=== PATIENT | female | born 1965 | race Caucasian/White ===

== ENCOUNTER 2021-01-29 17:03 | Inpatient (IN) | payer OTHER ==
[2021-01-29 19:43] LABS: Basophils # (A) 0.1 k/uL (0-0.2); Basophils % (A) 0 %; Eosinophils % (A) 0 %; HCT 43.2 % (34.0-46.0); HGB 14.5 gm/dL (11.4-16.0); Lymphocytes # (A) 0.9 k/uL (1.0-4.8); Lymphocytes % (A) 5 %; MCHC 33.6 g/dL (31.0-37.0); MCV 89.3 fL (80.0-100.0); Mean Platelet Volume 7.6; Monocytes # (A) 0.9 k/uL (0-1.0); Monocytes % (A) 5 %; Neutrophils # (A) 15.4 k/uL (1.3-7.7); Neutrophils % (A) 87 %; Platelet Count 306 k/uL (150-450); RBC 4.84 m/uL (3.80-5.40); WBC 17.7 k/uL (3.8-10.6)
[2021-01-29 19:58] LABS: Albumin 3.7 g/dL (3.5-5.0); Calcium 9.2 mg/dL (8.4-10.2)
[2021-01-29] MEDS ORDERED: INSULIN REGULAR 100 UNIT/ML VIAL (IV) IV STA (21:20)
[2021-01-29] MEDS ORDERED: SODIUM CHLORIDE 0.9% 2,000 ML IV ONE (21:20)
[2021-01-29] MEDS ORDERED: SODIUM CHLORIDE 0.9% 1,000 ML IV STA (21:20)
--- NOTE | 2021-01-29 21:24 | ED ---
Nausea/Vomiting/Diarrhea HPI - General Chief complaint: Nausea/Vomiting/Diarrhea Stated complaint: nausea, dizzy Time Seen by Provider: 01/29/21 20:58 Source: patient Mode of arrival: wheelchair Limitations: physical limitation - History of Present Illness Initial comments: This patient is a 55-year-old woman who states she has no real medical history a nd comes in presenting with approximately a week of a number symptoms. She had about 4 days of feeling hot and cold a little bit of mild headache and backache, and then she started feeling more progressively weak for the past 3 days she has been having nausea and vomiting feeling lightheaded when she gets up and feels like she will faint if she walks. She states that it got so bad she decided to be seen here today. She denies feeling focal symptoms of infection. No congestion or sore throat. No cough, chest pain or dyspnea. No nausea vomiting or diarrhea. No rash. MD complaint: nausea, vomiting, other -: days(s) Description of Vomiting: food contents Severity scale (1-10): 0 Consistency: constant Improves with: none Worsens with: none Associated Symptoms: myalgias, headaches, nausea/vomiting, weakness - Related Data Previous Rx's Medication Instructions Recorded Amoxicillin/Potassium Clav 1 tab PO BID 10 Days #20 tab 02/05/21 [Augmentin 875-125 Tablet] Insulin Glargine,Hum.rec.anlog 30 unit SQ HS #10 each 02/05/21 [Basaglar Kwikpen U-100] Omeprazole [PriLOSEC] 20 mg PO AC-BID 30 Days #60 cap 02/05/21 Ondansetron [Zofran] 4 mg PO Q8HR PRN #9 tab 02/05/21 lisinopriL [Zestril] 5 mg PO DAILY #30 tablet 02/05/21 metFORMIN HCL [Glucophage] 500 mg PO BID 30 Days #60 tab 02/05/21 Allergies Allergy/AdvReac Type Severity Reaction Status Date / Time No Known Allergies Allergy Verified 01/29/21 23:15 Review of Systems ROS Statement: Those systems with pertinent positive or pertinent negative responses have been documented in the HPI. ROS Other: All systems not noted in ROS Statement are negative. Constitutional: Reports: fever, chills, weakness Eyes: Denies: vision change ENT: Denies: throat pain, congestion Respiratory: Denies: cough, dyspnea, wheezes Cardiovascular: Denies: chest pain, palpitations, orthopnea, edema, syncope Endocrine: Reports: fatigue Gastrointestinal: Reports: nausea, vomiting. Denies: abdominal pain, diarrhea, constipation, hematemesis, melena, hematochezia Genitourinary: Denies: dysuria, frequency, hematuria Musculoskeletal: Denies: back pain Skin: Denies: rash Neurological: Denies: headache, weakness Past Medical History Past Medical History: No Reported History History of Any Multi-Drug Resistant Organisms: None Reported Past Surgical History: No Surgical Hx Reported Past Psychological History: No Psychological Hx Reported Smoking Status: Never smoker Past Alcohol Use History: None Reported Past Drug Use History: None Reported - Past Family History Mother History Unknown: Yes Father History Unknown: Yes General Exam Limitations: physical limitation General appearance: alert, in no apparent distress Head exam: Present: atraumatic, normocephalic Eye exam: Present: normal appearance ENT exam: Present: mucous membranes dry Neck exam: Present: normal inspection, full ROM Respiratory exam: Present: normal lung sounds bilaterally. Absent: respiratory distress, wheezes, rales, rhonchi, stridor Cardiovascular Exam: Present: regular rate, normal rhythm, normal heart sounds. Absent: systolic murmur, diastolic murmur, rubs, gallop GI/Abdominal exam: Present: soft. Absent: distended, tenderness, guarding, rebound, rigid, mass Extremities exam: Present: normal inspection, normal capillary refill. Absent: pedal edema, calf tenderness Back exam: Present: normal inspection. Absent: CVA tenderness (R), CVA tenderness (L) Neurological exam: Present: alert Skin exam: Present: warm, dry, intact, normal color. Absent: rash Course Vital Signs 01/29/21 01/29/21 01/30/21 18:52 23:14 01:52 Temperature 98.8 F Pulse Rate 109 H 93 120 H Pulse Rate [ Hand Tool Lapper ] Respiratory 18 16 22 Rate Blood Pressure 123/78 132/75 128/73 Blood Pressure [Right Arm] O2 Sat by Pulse 99 97 Oximetry 01/30/21 01/30/21 01/30/21 04:23 07:52 07:55 Temperature 101.6 F H 101.6 F H Pulse Rate 63 Pulse Rate [ 124 H 124 H Hand Tool Lapper ] Respiratory 16 18 16 Rate Blood Pressure 104/79 Blood Pressure 144/82 144/82 [Right Arm] O2 Sat by Pulse 96 93 L 93 L Oximetry 01/30/21 01/30/21 11:45 15:50 Temperature 100.6 F H 99.3 F Pulse Rate Pulse Rate [ 106 H 104 H Hand Tool Lapper ] Respiratory 16 18 Rate Blood Pressure Blood Pressure 127/77 121/59 [Right Arm] O2 Sat by Pulse 95 95 Oximetry Medical Decision Making - Lab Data Result diagrams: 02/05/21 06:00 02/05/21 06:00 Lab Results 01/29/21 01/29/21 01/29/21 Range/Units 19:24 19:24 19:24 WBC 17.7 H (3.8-10.6) k/uL RBC 4.84 (3.80-5.40) m/uL Hgb 14.5 (11.4-16.0) gm/dL Hct 43.2 (34.0-46.0) % MCV 89.3 (80.0-100.0) fL MCH 30.0 (25.0-35.0) pg MCHC 33.6 (31.0-37.0) g/dL RDW 13.0 (11.5-15.5) % Plt Count 306 (150-450) k/uL MPV 7.6 Neutrophils % 87 % Lymphocytes % 5 % Monocytes % 5 % Eosinophils % 0 % Basophils % 0 % Neutrophils # 15.4 H (1.3-7.7) k/uL Lymphocytes # 0.9 L (1.0-4.8) k/uL Monocytes # 0.9 (0-1.0) k/uL Eosinophils # 0.0 (0-0.7) k/uL Basophils # 0.1 (0-0.2) k/uL Sodium 126 L (137-145) mmol/L Potassium 4.0 (3.5-5.1) mmol/L Chloride 88 L (98-107) mmol/L Carbon Dioxide 16 L (22-30) mmol/L Anion Gap 22 mmol/L BUN 33 H (7-17) mg/dL Creatinine 1.35 H (0.52-1.04) mg/dL Est GFR (CKD-EPI)AfAm 51 (>60 ml/min/1.73 sqM) Est GFR (CKD-EPI)NonAf 44 (>60 ml/min/1.73 sqM) Glucose 486 H (74-99) mg/dL POC Glucose (mg/dL) (75-99) mg/dL POC Glu Quote Clerk ID Calcium 9.2 (8.4-10.2) mg/dL Total Bilirubin 1.0 (0.2-1.3) mg/dL AST 16 (14-36) U/L ALT 13 (4-34) U/L Alkaline Phosphatase 162 H (38-126) U/L Troponin I (0.000-0.034) ng/mL Total Protein 7.0 (6.3-8.2) g/dL Albumin 3.7 (3.5-5.0) g/dL Acetone, Qual Positive (Negative) Coronavirus (PCR) (Not Detectd) 01/29/21 01/29/21 01/29/21 Range/Units 19:24 21:47 23:01 WBC (3.8-10.6) k/uL RBC (3.80-5.40) m/uL Hgb (11.4-16.0) gm/dL Hct (34.0-46.0) % MCV (80.0-100.0) fL MCH (25.0-35.0) pg MCHC (31.0-37.0) g/dL RDW (11.5-15.5) % Plt Count (150-450) k/uL MPV Neutrophils % % Lymphocytes % % Monocytes % % Eosinophils % % Basophils % % Neutrophils # (1.3-7.7) k/uL Lymphocytes # (1.0-4.8) k/uL Monocytes # (0-1.0) k/uL Eosinophils # (0-0.7) k/uL Basophils # (0-0.2) k/uL Sodium (137-145) mmol/L Potassium (3.5-5.1) mmol/L Chloride (98-107) mmol/L Carbon Dioxide (22-30) mmol/L Anion Gap mmol/L BUN (7-17) mg/dL Creatinine (0.52-1.04) mg/dL Est GFR (CKD-EPI)AfAm (>60 ml/min/1.73 sqM) Est GFR (CKD-EPI)NonAf (>60 ml/min/1.73 sqM) Glucose (74-99) mg/dL POC Glucose (mg/dL) 439 H (75-99) mg/dL POC Glu Quote Clerk Javier Rodrigez Calcium (8.4-10.2) mg/dL Total Bilirubin (0.2-1.3) mg/dL AST (14-36) U/L ALT (4-34) U/L Alkaline Phosphatase (38-126) U/L Troponin I <0.012 (0.000-0.034) ng/mL Total Protein (6.3-8.2) g/dL Albumin (3.5-5.0) g/dL Acetone, Qual (Negative) Coronavirus (PCR) Not Detected (Not Detectd) - EKG Data -: EKG Interpreted by Me EKG shows normal: sinus rhythm, axis (Normal), intervals (Normal), QRS complexes (Normal), ST-T waves (Normal) Rate: tachycardia (Rate 106 bpm) Critical Care Time Critical Care Time: Yes (30 minutes) Disposition Clinical Impression: DKA (diabetic ketoacidosis) Disposition: ADMITTED IP TO THIS [facility] Condition: Fair Is patient prescribed a controlled substance at d/c from ED?: No
[2021-01-29 23:02] LABS: Glucose,Whole Blood 439 mg/dL (75-99)
[2021-01-30 00:38] LABS: Glucose,Whole Blood 366 mg/dL (75-99)
[2021-01-30] MEDS: INSULIN REGULAR 100 UNIT in SODIUM CHLORIDE 0.9% 100 ML IV SCH ×2 (00:41→11:37)
[2021-01-30] MEDS ORDERED: ONDANSETRON 4 MG/2 ML VIAL IVP STA (00:50)
[2021-01-30] MEDS ORDERED: MORPHINE SULFATE 4 MG/ML SYRINGE IV STA (00:50)
[2021-01-30 01:19] LABS: Phosphorus 2.6 mg/dL (2.5-4.5)
[2021-01-30] MEDS: SODIUM CHLORIDE 0.9% 1,000 ML IV SCH ×5 (01:25→18:56)
[2021-01-30 02:09] LABS: Glucose,Whole Blood 347 mg/dL (75-99)
[2021-01-30 03:14] LABS: Glucose,Whole Blood 318 mg/dL (75-99)
[2021-01-30 04:21] LABS: Glucose,Whole Blood 278 mg/dL (75-99)
[2021-01-30 05:30] LABS: Phosphorus 1.4 mg/dL (2.5-4.5); Potassium 3.1 mmol/L (3.5-5.1)
[2021-01-30 05:30] LABS: Glucose,Whole Blood 217 mg/dL (75-99)
[2021-01-30] MEDS ORDERED: Potassium Replacement Protocol 1 EACH MISC MISCELLANE PRN (06:23)
[2021-01-30] MEDS: POTASSIUM CHLORIDE ER 20 MEQ TAB.ER PO SCH ×2 (06:41→10:29)
[2021-01-30 06:45] LABS: Glucose,Whole Blood 188 mg/dL (75-99)
[2021-01-30 08:17] LABS: Glucose,Whole Blood 226 mg/dL (75-99)
[2021-01-30] MEDS: D5W WITH KCL 20 MEQ/L 1,000 ML IV SCH ×2 (08:57→21:40)
[2021-01-30 09:47] LABS: Glucose,Whole Blood 210 mg/dL (75-99)
[2021-01-30 10:43] LABS: Glucose,Whole Blood 180 mg/dL (75-99)
[2021-01-30] MEDS ORDERED: PIPERACILLIN-TAZOBACTAM 3.375 GM in SODIUM CHLORIDE 0.9% 100 ML IVPB SCH (12:00)
--- NOTE | 2021-01-30 12:19 | XR ---
EXAMINATION TYPE: XR chest 2V DATE OF EXAM: 01/30/2021 COMPARISON: None INDICATION: Pneumonia TECHNIQUE: 2 view chest FINDINGS: The heart size is normal. The pulmonary vasculature is normal. Minimal infiltrate is at the right base. Correlate for plate atelectasis and subsegmental atelectasis . Posterior infiltrate on the lateral view may also be present. IMPRESSION: 1. Right lower lobe infiltrate. Correlate for atelectasis and pneumonia. Follow-up can be performed.
[2021-01-30 12:24] LABS: Glucose,Whole Blood 162 mg/dL (75-99)
[2021-01-30 12:35] LABS: Glucose,Whole Blood 142 mg/dL (75-99)
[2021-01-30 13:23] LABS: Glucose,Whole Blood 162 mg/dL (75-99)
[2021-01-30 13:30] LABS: Albumin 2.8 g/dL (3.5-5.0); Calcium 7.9 mg/dL (8.4-10.2); Total Bilirubin 0.7 mg/dL (0.2-1.3); Total Protein 5.7 g/dL (6.3-8.2)
--- NOTE | 2021-01-30 13:36 | P.HPIM ---
History of Present Illness Patient is a 55-year-old female came in with complains of rectal nausea vomiting with headache and backache has been getting progressively weak for about 3 days. Patient is found to be in diabetic acidosis patient was never diagnosed with discitis and do not have any hemoglobin A1c available at this time. Patient also had fevers today patient doesn't have any cough but chest x-ray was done which showed right lower lobe infiltrate initially patient was started on Zosyn empirically which will be transitioned to Rocephin and azithromycin. I also obtain a urine cultures and blood cultures which are pending. Patient is hyponatremic as well as hypokalemic secondary to nausea vomiting. Patient does have leukocytosis as well. REVIEW OF SYSTEMS: CONSTITUTIONAL: As mentioned in HPI HEENT: No recent visual problems or hearing problems. Denied any sore throat. CARDIOVASCULAR: No chest pain, orthopnea, PND, no palpitations, no syncope. PULMONARY: No shortness of breath, no cough, no hemoptysis. GASTROINTESTINAL: As mentioned in HPI. NEUROLOGICAL: No headaches, no weakness, no numbness. HEMATOLOGICAL: Denies any bleeding or petechiae. GENITOURINARY: Denies any burning micturition, frequency, or urgency. MUSCULOSKELETAL/RHEUMATOLOGICAL: Denies any joint pain, swelling, or any muscle pain. ENDOCRINE: Denies any polyuria or polydipsia. The rest of the 14-point review of systems is negative. PHYSICAL EXAMINATION: GENERAL: The patient is alert and oriented x3, not in any acute distress. Well developed, well nourished. HEENT: Pupils are round and equally reacting to light. EOMI. No scleral icterus. No conjunctival pallor. Normocephalic, atraumatic. No pharyngeal erythema. No thyromegaly. CARDIOVASCULAR: S1 and S2 present. No murmurs, rubs, or gallops. PULMONARY: Chest is clear to auscultation, no wheezing or crackles. ABDOMEN: Soft, nontender, nondistended, normoactive bowel sounds. No palpable organomegaly. MUSCULOSKELETAL: No joint swelling or deformity. EXTREMITIES: No cyanosis, clubbing, or pedal edema. NEUROLOGICAL: Gross neurological examination did not reveal any focal deficits. SKIN: No rashes. Assessment and plan Possible diabetic ketoacidosis: Patient appears to be type II diabetic with insulin deficiency. Patient does have acetone in the urine but this can be starvation ketosis. Patient will be continued on IV insulin will continue to follow DKA protocol for now was anion gap resolves patient will be transitioned to 15 units of long-acting insulin an hour after that patient kidney and IV fluids will be transitioned to normal saline from D5 half-normal saline, IV insulin will be discontinued. -Hyponatremia hypovolemic hyponatremia and hyperosmolar hyponatremia secondary to diabetes mellitus expected to improve with improvement of blood sugars -Possible right lower lobe pneumonia patient does have sepsis possible source being right lower lobe pneumonia patient does have infiltrate on the chest x-ray although minimal. Patient will be switched to Rocephin and azithromycin blood cultures were obtained pending urine cultures and urinalysis -Hypokalemia potassium will be replaced -Tachycardia secondary to sepsis and metabolic acidosis DVT prophylaxis: Lovenox Past Medical History Past Medical History: No Reported History History of Any Multi-Drug Resistant Organisms: None Reported Past Surgical History: No Surgical Hx Reported Past Anesthesia/Blood Transfusion Reactions: No Reported Reaction Past Psychological History: No Psychological Hx Reported Smoking Status: Never smoker Past Alcohol Use History: None Reported Past Drug Use History: None Reported - Past Family History Mother History Unknown: Yes Father History Unknown: Yes Medications and Allergies Home Medications Medication Instructions Recorded Confirmed Type No Known Home Medications 01/29/21 01/29/21 History Allergies Allergy/AdvReac Type Severity Reaction Status Date / Time No Known Allergies Allergy Verified 01/29/21 23:15 Physical Exam Vitals: Vital Signs Temp Pulse Pulse Resp BP BP Pulse Ox 01/30/21 11:45 100.6 F H 106 H 16 127/77 95 01/30/21 07:55 101.6 F H 124 H 16 144/82 93 L 01/30/21 07:52 101.6 F H 124 H 18 144/82 93 L 01/30/21 04:23 63 16 104/79 96 01/30/21 01:52 120 H 22 128/73 01/29/21 23:14 93 16 132/75 97 01/29/21 18:52 98.8 F 109 H 18 123/78 99 Intake and Output 01/29/21 01/30/21 01/30/21 22:59 06:59 14:59 Intake Total 54.468 46.671 Balance 54.468 46.671 Intake: Intake, IV Titration 54.468 46.671 Amount Insulin Regular 100 unit 54.468 46.671 In Sodium Chloride 0.9% 100 ml @ 0.1 UNITS/KG/HR 8.567 mls/hr IV .[id number] [facility] [place] Rx#:[id number] Other: Weight 84.822 kg 84.822 kg Results CBC & Chem 7: 01/29/21 19:24 01/30/21 12:45 Labs: Abnormal Lab Results - Last 24 Hours (Table) 01/29/21 01/29/21 01/29/21 Range/Units 19:24 19:24 23:01 WBC 17.7 H (3.8-10.6) k/uL Neutrophils # 15.4 H (1.3-7.7) k/uL Lymphocytes # 0.9 L (1.0-4.8) k/uL Sodium 126 L (137-145) mmol/L Potassium (3.5-5.1) mmol/L Chloride 88 L (98-107) mmol/L Carbon Dioxide 16 L (22-30) mmol/L BUN 33 H (7-17) mg/dL Creatinine 1.35 H (0.52-1.04) mg/dL Glucose 486 H (74-99) mg/dL POC Glucose (mg/dL) 439 H (75-99) mg/dL Calcium (8.4-10.2) mg/dL Phosphorus (2.5-4.5) mg/dL Alkaline Phosphatase 162 H (38-126) U/L Total Protein (6.3-8.2) g/dL Albumin (3.5-5.0) g/dL 01/30/21 01/30/21 01/30/21 Range/Units 00:33 00:37 02:07 WBC (3.8-10.6) k/uL Neutrophils # (1.3-7.7) k/uL Lymphocytes # (1.0-4.8) k/uL Sodium 130 L (137-145) mmol/L Potassium (3.5-5.1) mmol/L Chloride 97 L (98-107) mmol/L Carbon Dioxide 11 L (22-30) mmol/L BUN 30 H (7-17) mg/dL Creatinine 1.06 H (0.52-1.04) mg/dL Glucose 420 H (74-99) mg/dL POC Glucose (mg/dL) 366 H 347 H (75-99) mg/dL Calcium (8.4-10.2) mg/dL Phosphorus (2.5-4.5) mg/dL Alkaline Phosphatase (38-126) U/L Total Protein (6.3-8.2) g/dL Albumin (3.5-5.0) g/dL 01/30/21 01/30/21 01/30/21 Range/Units 03:09 04:16 04:34 WBC (3.8-10.6) k/uL Neutrophils # (1.3-7.7) k/uL Lymphocytes # (1.0-4.8) k/uL Sodium 133 L (137-145) mmol/L Potassium 3.1 L (3.5-5.1) mmol/L Chloride (98-107) mmol/L Carbon Dioxide 16 L (22-30) mmol/L BUN 27 H (7-17) mg/dL Creatinine (0.52-1.04) mg/dL Glucose 252 H (74-99) mg/dL POC Glucose (mg/dL) 318 H 278 H (75-99) mg/dL Calcium (8.4-10.2) mg/dL Phosphorus 1.4 L (2.5-4.5) mg/dL Alkaline Phosphatase (38-126) U/L Total Protein (6.3-8.2) g/dL Albumin (3.5-5.0) g/dL 01/30/21 01/30/21 01/30/21 Range/Units 05:25 06:44 08:10 WBC (3.8-10.6) k/uL Neutrophils # (1.3-7.7) k/uL Lymphocytes # (1.0-4.8) k/uL Sodium (137-145) mmol/L Potassium (3.5-5.1) mmol/L Chloride (98-107) mmol/L Carbon Dioxide (22-30) mmol/L BUN (7-17) mg/dL Creatinine (0.52-1.04) mg/dL Glucose (74-99) mg/dL POC Glucose (mg/dL) 217 H 188 H 226 H (75-99) mg/dL Calcium (8.4-10.2) mg/dL Phosphorus (2.5-4.5) mg/dL Alkaline Phosphatase (38-126) U/L Total Protein (6.3-8.2) g/dL Albumin (3.5-5.0) g/dL 01/30/21 01/30/21 01/30/21 Range/Units 09:04 10:31 11:34 WBC (3.8-10.6) k/uL Neutrophils # (1.3-7.7) k/uL Lymphocytes # (1.0-4.8) k/uL Sodium (137-145) mmol/L Potassium (3.5-5.1) mmol/L Chloride (98-107) mmol/L Carbon Dioxide (22-30) mmol/L BUN (7-17) mg/dL Creatinine (0.52-1.04) mg/dL Glucose (74-99) mg/dL POC Glucose (mg/dL) 210 H 180 H 162 H (75-99) mg/dL Calcium (8.4-10.2) mg/dL Phosphorus (2.5-4.5) mg/dL Alkaline Phosphatase (38-126) U/L Total Protein (6.3-8.2) g/dL Albumin (3.5-5.0) g/dL 01/30/21 01/30/21 01/30/21 Range/Units 12:34 12:45 13:22 WBC (3.8-10.6) k/uL Neutrophils # (1.3-7.7) k/uL Lymphocytes # (1.0-4.8) k/uL Sodium 129 L (137-145) mmol/L Potassium (3.5-5.1) mmol/L Chloride (98-107) mmol/L Carbon Dioxide 20 L (22-30) mmol/L BUN 25 H (7-17) mg/dL Creatinine (0.52-1.04) mg/dL Glucose 150 H (74-99) mg/dL POC Glucose (mg/dL) 142 H 162 H (75-99) mg/dL Calcium 7.9 L (8.4-10.2) mg/dL Phosphorus (2.5-4.5) mg/dL Alkaline Phosphatase (38-126) U/L Total Protein 5.7 L (6.3-8.2) g/dL Albumin 2.8 L (3.5-5.0) g/dL Thrombosis Risk Factor Assmnt - Choose All That Apply Each Factor Represents 1 point: Age 41-60 years Thrombosis Risk Factor Assessment Total Risk Factor Score: 1 Thrombosis Risk Factor Assessment Level: Low Risk
[2021-01-30 14:36] LABS: Glucose,Whole Blood 176 mg/dL (75-99)
[2021-01-30] MEDS ORDERED: METOCLOPRAMIDE 5 MG/ML 2 ML VIAL IVP PRN (16:06)
[2021-01-30] MEDS: AZITHROMYCIN 500 MG TAB PO SCH (16:09)
[2021-01-30] MEDS: ONDANSETRON 4 MG/2 ML VIAL IVP PRN (16:16)
[2021-01-30 16:21] LABS: Glucose,Whole Blood 187 mg/dL (75-99)
[2021-01-30 17:17] LABS: Appearance,Urine Cloudy (Clear); Bacteria,Urine Many /hpf; Bilirubin,Urine Negative (Negative); Blood,Urine Large (Negative); Color,Urine Yellow; Glucose,Urine (UA) 3+ (Negative); Ketones,Urine 1+ (Negative); Leukocyte Esterase,Urine Large (Negative); Mucus,Urine Rare /hpf; Nitrite,Urine Negative (Negative); Protein,Urine 2+ (Negative); RBC,Urine 9 /hpf (0-5); Specific Gravity,Urine 1.013 (1.001-1.035); Squamous Epithelial Cell,Urine 1 /hpf (0-4); Urobilinogen,Urine <2.0 mg/dL (<2.0); WBC,Urine >182 /hpf (0-5)
[2021-01-30 17:22] LABS: Glucose,Whole Blood 178 mg/dL (75-99)
[2021-01-30] MEDS ORDERED: INSULIN DETEMIR (LEVEMIR) 100 UNIT/ML SYR SQ ONE (17:27)
[2021-01-30] MEDS: INSULIN ASPART (NovoLOG) 100 UNIT/ML VIAL SQ SCH ×2 (18:19→20:42)
[2021-01-30 18:32] LABS: Glucose,Whole Blood 171 mg/dL (75-99)
[2021-01-30] MEDS ORDERED: METOCLOPRAMIDE 5 MG/ML 2 ML VIAL IVP STA (19:56)
[2021-01-30 20:26] LABS: Glucose,Whole Blood 232 mg/dL (75-99)
[2021-01-30 20:26] LABS: Basophils # (A) 0.2 k/uL (0-0.2); Basophils % (A) 1 %; Eosinophils % (A) 0 %; HCT 37.4 % (34.0-46.0); HGB 13.2 gm/dL (11.4-16.0); Lymphocytes # (A) 0.8 k/uL (1.0-4.8); Lymphocytes % (A) 4 %; MCH 30.1 pg (25.0-35.0); MCHC 35.4 g/dL (31.0-37.0); MCV 85.1 fL (80.0-100.0); Mean Platelet Volume 7.3; Monocytes % (A) 5 %; Neutrophils # (A) 18.9 k/uL (1.3-7.7); Neutrophils % (A) 88 %; Platelet Count 314 k/uL (150-450); RDW 13.3 % (11.5-15.5); WBC 21.6 k/uL (3.8-10.6)
[2021-01-30 20:40] LABS: Albumin 2.7 g/dL (3.5-5.0); Calcium 7.9 mg/dL (8.4-10.2); Potassium 3.8 mmol/L (3.5-5.1); Total Bilirubin 0.9 mg/dL (0.2-1.3); Total Protein 5.7 g/dL (6.3-8.2)
[2021-01-30] MEDS: PANTOPRAZOLE 40 MG/10 ML VIAL IVP SCH (20:41)
[2021-01-30] MEDS: ACETAMINOPHEN TAB 325 MG TAB PO PRN (20:44)
[2021-01-30 22:10] LABS: Glucose,Whole Blood 221 mg/dL (75-99)
[2021-01-31] MEDS: ACETAMINOPHEN TAB 325 MG TAB PO PRN ×3 (03:43→20:18)
[2021-01-31] MEDS: SODIUM CHLORIDE 0.9% 1,000 ML IV SCH ×4 (03:44→20:24)
[2021-01-31 06:17] LABS: Glucose,Whole Blood 275 mg/dL (75-99)
[2021-01-31] MEDS ORDERED: INSULIN DETEMIR (LEVEMIR) 100 UNIT/ML SYR SQ SCH (07:00)
[2021-01-31] MEDS: INSULIN ASPART (NovoLOG) 100 UNIT/ML VIAL SQ SCH ×5 (07:10→20:18)
[2021-01-31 07:20] LABS: HCT 33.5 % (34.0-46.0); HGB 11.6 gm/dL (11.4-16.0); MCH 29.2 pg (25.0-35.0); MCHC 34.5 g/dL (31.0-37.0); MCV 84.6 fL (80.0-100.0); Mean Platelet Volume 7.8; Platelet Count 218 k/uL (150-450); RBC 3.95 m/uL (3.80-5.40); RDW 12.8 % (11.5-15.5); WBC 22.7 k/uL (3.8-10.6)
[2021-01-31] MEDS: AZITHROMYCIN 500 MG TAB PO SCH (08:55)
[2021-01-31] MEDS: ENOXAPARIN 40 MG/0.4 ML SYRINGE SQ SCH (08:56)
[2021-01-31] MEDS: PANTOPRAZOLE 40 MG/10 ML VIAL IVP SCH ×2 (08:56→20:18)
[2021-01-31] MEDS: METOCLOPRAMIDE 5 MG/ML 2 ML VIAL IVP PRN ×2 (10:01→15:04)
[2021-01-31 10:34] LABS: Calcium 7.4 mg/dL (8.4-10.2); Potassium 3.6 mmol/L (3.5-5.1)
[2021-01-31 11:36] VITALS: BMI 28.4
[2021-01-31] MEDS ORDERED: POTASSIUM CHLORIDE 10 MEQ in WATER FOR INJECTION 1 100ML.BAG IVPB SCH (12:00)
[2021-01-31] MEDS ORDERED: POTASSIUM CHLORIDE ER 20 MEQ TAB.ER PO SCH (12:00)
[2021-01-31 12:09] LABS: Glucose,Whole Blood 203 mg/dL (75-99)
[2021-01-31 12:30] LABS: ALT 17 U/L (4-34); AST 25 U/L (14-36)
--- NOTE | 2021-01-31 14:46 | P.PN ---
Subjective Progress Note Date: 01/31/21 Patient is a 55-year-old female came in with complains of rectal nausea vomiting with headache and backache has been getting progressively weak for about 3 days. Patient is found to be in diabetic acidosis patient was never diagnosed with discitis and do not have any hemoglobin A1c available at this time. Patient also had fevers today patient doesn't have any cough but chest x-ray was done which showed right lower lobe infiltrate initially patient was started on Zosyn empirically which will be transitioned to Rocephin and azithromycin. I also obtain a urine cultures and blood cultures which are pending. Patient is hyponatremic as well as hypokalemic secondary to nausea vomiting. Patient does have leukocytosis as well. 01/31/2021 Patient is evaluated today resting blood pressure still quite nauseous, she reports 1 episode of vomiting throughout the evening. She is on Reglan Zofran and Compazine. Urinalysis was positive, culture is pending patient is on IV Rocephin and by mouth Zithromax. Chest x-ray was reviewed and there was very minimal infiltrate, infection is likely related to UTI versus pneumonia. Patient was transitioned to Levemir with s/s coverage, sugars are in the 200s we will adjust insulin. She denies any dysuria burning or urgency. Last sensation white count 22.7, sodium 128, potassium 3.6, lactic acid 1.2, liver enzymes are within normal limits at 25 and 17. BUN 22, creatinine 1.09. We also swab for influenza A/P which were negative. Covid was negative. Patient is currently afebrile however had a temperature of 100.1 yesterday evening. Blood pressure is 114/66, 95% on room air she is tachycardic at 105. She is on a clear liquid diet. ROS Constitutional: Reports fatigue, malaise, fever Cardio vascular: denied any chest pain, palpitations Gastrointestinal: Reports nausea, vomiting, denies diarrhea Pulmonary: Denied any shortness of breath cough Neurologic denied any new focal deficits All inpatient medications were reviewed and appropriate changes in these medications as dictated in the interval history and assessment and plan. PHYSICAL EXAMINATION: GENERAL: The patient is alert and oriented x3, patient appears fatigued. Well developed, well nourished. HEENT: Pupils are round and equally reacting to light. EOMI. No scleral icterus. No conjunctival pallor. Normocephalic, atraumatic. No pharyngeal erythema. No thyromegaly. CARDIOVASCULAR: S1 and S2 present. No murmurs, rubs, or gallops. PULMONARY: Chest is clear to auscultation, no wheezing or crackles. ABDOMEN: Soft, nontender, nondistended, normoactive bowel sounds. No palpable organomegaly. MUSCULOSKELETAL: No joint swelling or deformity. EXTREMITIES: No cyanosis, clubbing, or pedal edema. NEUROLOGICAL: Gross neurological examination did not reveal any focal deficits. SKIN: No rashes. Assessment and plan -Diabetic ketoacidosis -New onset diabetes mellitus type 2 presenting with DKA -Hyponatremia - hypovolemic hyponatremia and hyperosmolar hyponatremia secondary to diabetes mellitus, improving -Possible right lower lobe pneumonia patient does have sepsis possible source being right lower lobe pneumonia patient does have infiltrate on the chest x-ray although minimal. Patient will be switched to Rocephin and azithromycin blood cultures were obtained pending urine cultures -Urinary tract infection present on admission, culture pending, on rocephin -Leukocytosis secondary to above -Hypokalemia potassium will be replaced -Tachycardia secondary to sepsis and metabolic acidosis DVT prophylaxis: Lovenox Plan Continue IV and PO antibiotics Continue antiemetics Clear liquid diet, advance as tolerated Monitor blood sugars, insulin coverage Blood cultures Repeat labs tomorrow Objective - Vital Signs Vital signs: Vital Signs Temp 98.9 F 01/31/21 08:00 Pulse 94 01/31/21 08:00 Resp 20 01/31/21 08:00 BP 131/69 01/31/21 08:00 Pulse Ox 96 01/31/21 08:00 Intake & Output 01/30/21 01/31/21 01/31/21 18:59 06:59 18:59 Intake Total 76.482 Output Total 600 Balance -523.518 Weight 84.822 kg 77.5 kg Intake: Intake, IV Titration 76.482 Amount Insulin Regular 100 unit 76.482 In Sodium Chloride 0.9% 100 ml @ 0.1 UNITS/KG/HR 8.567 mls/hr IV .[id number] [facility]LLIE Rx#:[id number] Output: Urine 600 Other: # Voids 1 - Labs CBC & Chem 7: 01/31/21 06:40 01/31/21 09:21 Labs: Abnormal Lab Results - Last 24 Hours (Table) 01/30/21 01/30/21 01/30/21 Range/Units 04:38 11:34 12:34 WBC (3.8-10.6) k/uL Hct (34.0-46.0) % Neutrophils # (1.3-7.7) k/uL Lymphocytes # (1.0-4.8) k/uL Sodium (137-145) mmol/L Carbon Dioxide (22-30) mmol/L BUN (7-17) mg/dL Creatinine (0.52-1.04) mg/dL Glucose (74-99) mg/dL POC Glucose (mg/dL) 162 H 142 H (75-99) mg/dL Calcium (8.4-10.2) mg/dL AST (14-36) U/L Alkaline Phosphatase (38-126) U/L Total Protein (6.3-8.2) g/dL Albumin (3.5-5.0) g/dL Procalcitonin 3.61 H (0.02-0.09) ng/mL Urine Appearance (Clear) Urine Protein (Negative) Urine Glucose (UA) (Negative) Urine Ketones (Negative) Urine Blood (Negative) Ur Leukocyte Esterase (Negative) Urine RBC (0-5) /hpf Urine WBC (0-5) /hpf Urine WBC Clumps (None) /hpf Urine Bacteria (None) /hpf Urine Mucus (None) /hpf 01/30/21 01/30/21 01/30/21 Range/Units 12:45 13:22 14:35 WBC (3.8-10.6) k/uL Hct (34.0-46.0) % Neutrophils # (1.3-7.7) k/uL Lymphocytes # (1.0-4.8) k/uL Sodium 129 L (137-145) mmol/L Carbon Dioxide 20 L (22-30) mmol/L BUN 25 H (7-17) mg/dL Creatinine (0.52-1.04) mg/dL Glucose 150 H (74-99) mg/dL POC Glucose (mg/dL) 162 H 176 H (75-99) mg/dL Calcium 7.9 L (8.4-10.2) mg/dL AST (14-36) U/L Alkaline Phosphatase (38-126) U/L Total Protein 5.7 L (6.3-8.2) g/dL Albumin 2.8 L (3.5-5.0) g/dL Procalcitonin (0.02-0.09) ng/mL Urine Appearance (Clear) Urine Protein (Negative) Urine Glucose (UA) (Negative) Urine Ketones (Negative) Urine Blood (Negative) Ur Leukocyte Esterase (Negative) Urine RBC (0-5) /hpf Urine WBC (0-5) /hpf Urine WBC Clumps (None) /hpf Urine Bacteria (None) /hpf Urine Mucus (None) /hpf 01/30/21 01/30/21 01/30/21 Range/Units 15:55 16:20 17:20 WBC (3.8-10.6) k/uL Hct (34.0-46.0) % Neutrophils # (1.3-7.7) k/uL Lymphocytes # (1.0-4.8) k/uL Sodium (137-145) mmol/L Carbon Dioxide (22-30) mmol/L BUN (7-17) mg/dL Creatinine (0.52-1.04) mg/dL Glucose (74-99) mg/dL POC Glucose (mg/dL) 187 H 178 H (75-99) mg/dL Calcium (8.4-10.2) mg/dL AST (14-36) U/L Alkaline Phosphatase (38-126) U/L Total Protein (6.3-8.2) g/dL Albumin (3.5-5.0) g/dL Procalcitonin (0.02-0.09) ng/mL Urine Appearance Cloudy H (Clear) Urine Protein 2+ H (Negative) Urine Glucose (UA) 3+ H (Negative) Urine Ketones 1+ H (Negative) Urine Blood Large H (Negative) Ur Leukocyte Esterase Large H (Negative) Urine RBC 9 H (0-5) /hpf Urine WBC >182 H (0-5) /hpf Urine WBC Clumps Many H (None) /hpf Urine Bacteria Many H (None) /hpf Urine Mucus Rare H (None) /hpf 01/30/21 01/30/21 01/30/21 Range/Units 18:23 20:12 20:12 WBC 21.6 H (3.8-10.6) k/uL Hct (34.0-46.0) % Neutrophils # 18.9 H (1.3-7.7) k/uL Lymphocytes # 0.8 L (1.0-4.8) k/uL Sodium 126 L (137-145) mmol/L Carbon Dioxide 17 L (22-30) mmol/L BUN 22 H (7-17) mg/dL Creatinine (0.52-1.04) mg/dL Glucose 227 H (74-99) mg/dL POC Glucose (mg/dL) 171 H (75-99) mg/dL Calcium 7.9 L (8.4-10.2) mg/dL AST 42 H (14-36) U/L Alkaline Phosphatase 145 H (38-126) U/L Total Protein 5.7 L (6.3-8.2) g/dL Albumin 2.7 L (3.5-5.0) g/dL Procalcitonin (0.02-0.09) ng/mL Urine Appearance (Clear) Urine Protein (Negative) Urine Glucose (UA) (Negative) Urine Ketones (Negative) Urine Blood (Negative) Ur Leukocyte Esterase (Negative) Urine RBC (0-5) /hpf Urine WBC (0-5) /hpf Urine WBC Clumps (None) /hpf Urine Bacteria (None) /hpf Urine Mucus (None) /hpf 01/30/21 01/30/21 01/31/21 Range/Units 20:25 22:08 06:15 WBC (3.8-10.6) k/uL Hct (34.0-46.0) % Neutrophils # (1.3-7.7) k/uL Lymphocytes # (1.0-4.8) k/uL Sodium (137-145) mmol/L Carbon Dioxide (22-30) mmol/L BUN (7-17) mg/dL Creatinine (0.52-1.04) mg/dL Glucose (74-99) mg/dL POC Glucose (mg/dL) 232 H 221 H 275 H (75-99) mg/dL Calcium (8.4-10.2) mg/dL AST (14-36) U/L Alkaline Phosphatase (38-126) U/L Total Protein (6.3-8.2) g/dL Albumin (3.5-5.0) g/dL Procalcitonin (0.02-0.09) ng/mL Urine Appearance (Clear) Urine Protein (Negative) Urine Glucose (UA) (Negative) Urine Ketones (Negative) Urine Blood (Negative) Ur Leukocyte Esterase (Negative) Urine RBC (0-5) /hpf Urine WBC (0-5) /hpf Urine WBC Clumps (None) /hpf Urine Bacteria (None) /hpf Urine Mucus (None) /hpf 01/31/21 01/31/21 Range/Units 06:40 09:21 WBC 22.7 H (3.8-10.6) k/uL Hct 33.5 L (34.0-46.0) % Neutrophils # (1.3-7.7) k/uL Lymphocytes # (1.0-4.8) k/uL Sodium 128 L (137-145) mmol/L Carbon Dioxide 17 L (22-30) mmol/L BUN 22 H (7-17) mg/dL Creatinine 1.09 H (0.52-1.04) mg/dL Glucose 233 H (74-99) mg/dL POC Glucose (mg/dL) (75-99) mg/dL Calcium 7.4 L (8.4-10.2) mg/dL AST (14-36) U/L Alkaline Phosphatase (38-126) U/L Total Protein (6.3-8.2) g/dL Albumin (3.5-5.0) g/dL Procalcitonin (0.02-0.09) ng/mL Urine Appearance (Clear) Urine Protein (Negative) Urine Glucose (UA) (Negative) Urine Ketones (Negative) Urine Blood (Negative) Ur Leukocyte Esterase (Negative) Urine RBC (0-5) /hpf Urine WBC (0-5) /hpf Urine WBC Clumps (None) /hpf Urine Bacteria (None) /hpf Urine Mucus (None) /hpf Microbiology - Last 24 Hours (Table) 01/30/21 15:55 Urine Culture - Preliminary Urine,Voided Assessment and Plan Time with Patient: Greater than 30
[2021-01-31 16:32] LABS: Glucose,Whole Blood 174 mg/dL (75-99)
[2021-01-31 19:58] LABS: Glucose,Whole Blood 184 mg/dL (75-99)
[2021-01-31] MEDS: ONDANSETRON 4 MG/2 ML VIAL IVP PRN (20:28)
[2021-01-31] MEDS: PROCHLORPERAZINE INJ 10 MG/2 ML VIAL IVP PRN (21:11)
[2021-02-01] MEDS: METOCLOPRAMIDE 5 MG/ML 2 ML VIAL IVP PRN ×2 (00:05→06:37)
[2021-02-01] MEDS: ONDANSETRON 4 MG/2 ML VIAL IVP PRN (02:52)
[2021-02-01] MEDS: PROCHLORPERAZINE INJ 10 MG/2 ML VIAL IVP PRN (03:59)
[2021-02-01 06:58] LABS: Glucose,Whole Blood 243 mg/dL (75-99)
[2021-02-01] MEDS: INSULIN ASPART (NovoLOG) 100 UNIT/ML VIAL SQ SCH ×7 (06:58→21:01)
[2021-02-01] MEDS: INSULIN DETEMIR (LEVEMIR) 100 UNIT/ML SYR SQ SCH (06:58)
[2021-02-01] MEDS: PANTOPRAZOLE 40 MG/10 ML VIAL IVP SCH ×2 (09:10→21:02)
[2021-02-01] MEDS: ENOXAPARIN 40 MG/0.4 ML SYRINGE SQ SCH (09:10)
[2021-02-01] MEDS: AZITHROMYCIN 500 MG TAB PO SCH (09:10)
[2021-02-01 10:06] LABS: Calcium 6.8 mg/dL (8.4-10.2); Potassium 3.4 mmol/L (3.5-5.1)
[2021-02-01 10:10] LABS: Basophils # (A) 0.1 k/uL (0-0.2); Basophils % (A) 1 %; Eosinophils % (A) 0 %; Lymphocytes # (A) 1.1 k/uL (1.0-4.8); Lymphocytes % (A) 5 %; MCH 29.4 pg (25.0-35.0); MCHC 34.4 g/dL (31.0-37.0); MCV 85.4 fL (80.0-100.0); Mean Platelet Volume 7.3; Monocytes # (A) 0.9 k/uL (0-1.0); Monocytes % (A) 4 %; Neutrophils # (A) 18.6 k/uL (1.3-7.7); Neutrophils % (A) 88 %; Platelet Count 284 k/uL (150-450); RBC 3.75 m/uL (3.80-5.40); RDW 13.5 % (11.5-15.5); WBC 21.2 k/uL (3.8-10.6)
[2021-02-01 11:43] LABS: Glucose,Whole Blood 167 mg/dL (75-99)
[2021-02-01] MEDS: IOPAMIDOL CONTRAST (ORAL USE) VIAL PO PRN ×2 (12:35→13:33)
[2021-02-01] MEDS: SODIUM CHLORIDE 0.9% 1,000 ML IV SCH ×2 (13:05→18:47)
[2021-02-01] MEDS ORDERED: POTASSIUM CHLORIDE ER 20 MEQ TAB.ER PO STA (13:31)
[2021-02-01] MEDS ORDERED: VANCOMYCIN IV PER PHARMACY 1 EACH MISC MISCELLANE PRN (13:47)
[2021-02-01] MEDS: VANCOMYCIN 1,500 MG in SODIUM CHLORIDE 0.9% 250 ML IVPB SCH (15:07)
--- NOTE | 2021-02-01 15:33 | CT ---
EXAMINATION TYPE: CT abdomen pelvis wo con DATE OF EXAM: 02/01/2021 COMPARISON: None INDICATION: Intractable nausea with intermittent vomiting DLP: 755.7 mGycm, Automated exposure control for dose reduction was used. CONTRAST: 0 mL of Isovue 300. Study performed without Oral Contrast TECHNIQUE: Axial images were obtained from above the diaphragm to the pubic rami in the axial plane a t 5 mm thick sections. Reconstructed images are reviewed on the computer in the coronal plane. FINDINGS: Limited CT sections are obtained the lung bases. Minimal scattered infiltrates are present. Findings are nonspecific. Consider mild atelectasis. Atypical pneumonia cannot be excluded. Small right pleur al effusion is present. Minimal left pleural effusion is present.. CT ABDOMEN: Liver: Normal Spleen: Normal Pancreas: Normal Adrenal glands: The adrenal glands are normal. Gallbladder: Normal Kidneys: No masses are evident. No hydronephrosis is present. No cysts are present. No renal calci fications are identified. Aorta: Vascular calcification is within the aorta. Inferior vena cava: Normal. CT PELVIS: Loops of bowel within the abdomen and pelvis are normal. There are loops of bowel which are incom pletely distended or lack oral contrast limiting their evaluation. Oral contrast extends to the cecum . Appendix: Not identified. No dilated tubular structure or inflammatory changes are Urinary bladder: Normal. Genitourinary structures: Uterus is normal. Adnexal regions are normal. Small amount of free fluid is pelvis. Osseous structures: No suspicious lytic or sclerotic lesions. IMPRESSIONS: 1. Small right pleural effusion. 2. Minimal free fluid within the pelvis. 3. Scattered mild infiltrates within the visualized lung bases particularly for atelectasis. Atypical pneumonia is not excluded.
--- NOTE | 2021-02-01 16:33 | P.PN ---
Subjective Progress Note Date: 02/01/21 Patient is a 55-year-old female came in with complains of rectal nausea vomiting with headache and backache has been getting progressively weak for about 3 days. Patient is found to be in diabetic acidosis patient was never diagnosed with discitis and do not have any hemoglobin A1c available at this time. Patient also had fevers today patient doesn't have any cough but chest x-ray was done which showed right lower lobe infiltrate initially patient was started on Zosyn empirically which will be transitioned to Rocephin and azithromycin. I also obtain a urine cultures and blood cultures which are pending. Patient is hyponatremic as well as hypokalemic secondary to nausea vomiting. Patient does have leukocytosis as well. 01/31/2021 Patient is evaluated today resting blood pressure still quite nauseous, she reports 1 episode of vomiting throughout the evening. She is on Reglan Zofran and Compazine. Urinalysis was positive, culture is pending patient is on IV Rocephin and by mouth Zithromax. Chest x-ray was reviewed and there was very minimal infiltrate, infection is likely related to UTI versus pneumonia. Patient was transitioned to Levemir with s/s coverage, sugars are in the 200s we will adjust insulin. She denies any dysuria burning or urgency. Last sensation white count 22.7, sodium 128, potassium 3.6, lactic acid 1.2, liver enzymes are within normal limits at 25 and 17. BUN 22, creatinine 1.09. We also swab for influenza A/P which were negative. Covid was negative. Patient is currently afebrile however had a temperature of 100.1 yesterday evening. Blood pressure is 114/66, 95% on room air she is tachycardic at 105. She is on a clear liquid diet. 02/01/2021 Patient she is still complaining of quite a bit of nausea. We did order an abdominal pelvis CT which showed small right pleural effusion, minimal free fluid within the pelvis, scattered mid infiltrates within the visualized lung bases particularly for atelectasis. Atypical pneumonia is not excluded. Urine cultures showing gram-negative bacilli, blood culture positive for gram-positive cocci, patient was started on IV Vanco with an infectious disease consultation. White blood cell count 21.2, hemoglobin 11, sodium 129, potassium 3.4, blood sugars in the 160s. Hemoglobin A1c came back at 11.5. Vitals today, Temp 99.2, Heart rate 93, blood pressure 124/76, 94% on room air. ROS Constitutional: Reports fatigue, malaise, fever Cardio vascular: denied any chest pain, palpitations Gastrointestinal: Reports nausea, denies vomiting, denies diarrhea Pulmonary: Reports mild increase in shortness of breath, denies cough Neurologic denied any new focal deficits All inpatient medications were reviewed and appropriate changes in these medications as dictated in the interval history and assessment and plan. PHYSICAL EXAMINATION: GENERAL: The patient is alert and oriented x3, patient appears fatigued. Well developed, well nourished. HEENT: Pupils are round and equally reacting to light. EOMI. No scleral icterus. No conjunctival pallor. Normocephalic, atraumatic. No pharyngeal erythema. No thyromegaly. CARDIOVASCULAR: S1 and S2 present. No murmurs, rubs, or gallops. PULMONARY: Chest is clear to auscultation, no wheezing or crackles. ABDOMEN: Soft, nontender, nondistended, normoactive bowel sounds. No palpable organomegaly. MUSCULOSKELETAL: No joint swelling or deformity. EXTREMITIES: No cyanosis, clubbing, or pedal edema. NEUROLOGICAL: Gross neurological examination did not reveal any focal deficits. SKIN: No rashes. Assessment and plan -Diabetic ketoacidosis, resolved -New onset diabetes mellitus type 2 presenting with DKA, hgbA1c - 11.5 -Hyponatremia - hypovolemic hyponatremia and hyperosmolar hyponatremia secondary to diabetes mellitus, improving -Possible right lower lobe pneumonia with sepsis, present on admission, on IV Vanco, cultures pending, ID consult -Urinary tract infection present on admission, culture pending, on IV Rocephin -Nausea, persistant, possibly related to antibiotics or infection, -Leukocytosis secondary to above -Hypokalemia potassium will be replaced -Tachycardia secondary to sepsis and metabolic acidosis DVT prophylaxis: Lovenox Plan Continue IV and PO antibiotics Added IV Vanco Continue antiemetics Clear liquid diet, advance as tolerated Monitor blood sugars, insulin coverage Blood cultures Repeat labs tomorrow ID Consult Objective - Vital Signs Vital signs: Vital Signs Temp 99.2 F 02/01/21 11:52 Pulse 93 02/01/21 11:52 Resp 17 02/01/21 11:52 BP 124/76 02/01/21 11:52 Pulse Ox 94 L 02/01/21 11:52 Intake & Output 01/31/21 02/01/21 02/01/21 18:59 06:59 18:59 Intake Total 1290 118 Output Total 600 180 Balance 1290 -600 -62 Weight 77.5 kg 79.5 kg Intake: Intake, IV Titration 1050 Amount Sodium Chloride 0.9% 1, 1000 000 ml @ 125 mls/hr IV . Q8H [facility] Rx#:[id number] cefTRIAXone 2 gm In 50 Sodium Chloride 0.9% 50 ml @ 100 mls/hr IVPB Q24HR KELLIE Rx#:[id number] Oral 240 118 Output: Urine 600 Post Void Residual 180 Other: Voiding Method Toilet # Voids 3 1 - Labs CBC & Chem 7: 02/01/21 08:49 02/01/21 08:49 Labs: Abnormal Lab Results - Last 24 Hours (Table) 01/31/21 01/31/21 01/31/21 Range/Units 09:21 11:51 16:31 WBC (3.8-10.6) k/uL RBC (3.80-5.40) m/uL Hgb (11.4-16.0) gm/dL Hct (34.0-46.0) % Neutrophils # (1.3-7.7) k/uL Sodium (137-145) mmol/L Potassium (3.5-5.1) mmol/L Carbon Dioxide (22-30) mmol/L Glucose (74-99) mg/dL POC Glucose (mg/dL) 203 H 174 H (75-99) mg/dL Hemoglobin A1c 11.5 H (4.0-6.0) % Calcium (8.4-10.2) mg/dL 01/31/21 02/01/21 02/01/21 Range/Units 19:57 06:55 08:49 WBC 21.2 H (3.8-10.6) k/uL RBC 3.75 L (3.80-5.40) m/uL Hgb 11.0 L (11.4-16.0) gm/dL Hct 32.0 L (34.0-46.0) % Neutrophils # 18.6 H (1.3-7.7) k/uL Sodium (137-145) mmol/L Potassium (3.5-5.1) mmol/L Carbon Dioxide (22-30) mmol/L Glucose (74-99) mg/dL POC Glucose (mg/dL) 184 H 243 H (75-99) mg/dL Hemoglobin A1c (4.0-6.0) % Calcium (8.4-10.2) mg/dL 02/01/21 02/01/21 Range/Units 08:49 11:40 WBC (3.8-10.6) k/uL RBC (3.80-5.40) m/uL Hgb (11.4-16.0) gm/dL Hct (34.0-46.0) % Neutrophils # (1.3-7.7) k/uL Sodium 129 L (137-145) mmol/L Potassium 3.4 L (3.5-5.1) mmol/L Carbon Dioxide 17 L (22-30) mmol/L Glucose 213 H (74-99) mg/dL POC Glucose (mg/dL) 167 H (75-99) mg/dL Hemoglobin A1c (4.0-6.0) % Calcium 6.8 L (8.4-10.2) mg/dL Microbiology - Last 24 Hours (Table) 01/30/21 15:55 Urine Culture - Preliminary Urine,Voided Gram Neg Bacilli Assessment and Plan Time with Patient: Greater than 30
[2021-02-01 16:53] LABS: Glucose,Whole Blood 151 mg/dL (75-99)
[2021-02-01 20:17] LABS: Glucose,Whole Blood 145 mg/dL (75-99)
[2021-02-02] MEDS: SODIUM CHLORIDE 0.9% 1,000 ML IV SCH ×3 (03:16→21:06)
[2021-02-02] MEDS: VANCOMYCIN 1,500 MG in SODIUM CHLORIDE 0.9% 250 ML IVPB SCH (06:09)
[2021-02-02 07:22] LABS: Glucose,Whole Blood 163 mg/dL (75-99)
[2021-02-02] MEDS: INSULIN ASPART (NovoLOG) 100 UNIT/ML VIAL SQ SCH ×7 (07:36→21:05)
[2021-02-02] MEDS: INSULIN DETEMIR (LEVEMIR) 100 UNIT/ML SYR SQ SCH (07:37)
[2021-02-02] MEDS: ENOXAPARIN 40 MG/0.4 ML SYRINGE SQ SCH (08:52)
[2021-02-02] MEDS: AZITHROMYCIN 500 MG TAB PO SCH (08:53)
[2021-02-02] MEDS: PANTOPRAZOLE 40 MG/10 ML VIAL IVP SCH ×2 (09:11→21:05)
--- NOTE | 2021-02-02 09:18 | P.CONS ---
History of Present Illness - Reason for Consult Consult date: 02/01/21 uti pneumonia bacteremia Requesting physician: Paula Cartwright - Chief Complaint flank pain and fever x 4 days - History of Present Illness History of present illness : Patient is 55-year-old female presenting to the hospital 3 days ago for evaluation of feeling hot and cold mild headache and backache which is she is presenting more towards the flank site patient has been feeling nauseated and lightheaded but did not really throw up patient pain to the lower back flank area is mostly dull aching to sharp 5-6 out of 10 and no radiation patient on presentation the hospital have a fever of 101.6 F no fever since then patient did have initial slight hypoxemia requiring supplemental oxygen currently on room air patient did have white count of 17.7 there is up to 21.2 as of today patient did have a positive UA did have a chest x-ray right lower lobe infiltrate correlate for atelectasis or pneumonia patient herself do not have any cough or shortness of breath patient did have a CT of abdominal pelvis completed today showing a small right pleural effusion minimal free fluid within the pelvis scattered mild infiltrate within the visualized lung bases particular atelectasis patient blood cultures came back positive with a gram- positive cocci that has prompted this infectious disease consultation patient is currently treated with Rocephin and Zithromax and vancomycin has been added Review of system: CONSTITUTIONAL: Positive for weakness along with the fever. EYES: No complaint. ENT: No complaint. RESPIRATORY: No complaint. CARDIOVASCULAR: No complaint. GENITOURINARY: As per history of present illness. GASTROINTESTINAL: No complaint. MUSCULOSKELETAL: No complaint. INTEGUMENTARY: No complaint. PSYCHOLOGIC: No complaint. ENDOCRINE: No complaint. NEUROLOGIC: No complaint. Past medical history : Reviewed, documented below Past surgical history : Reviewed, documented below Social history: Reviewed, documented below Medications: Reviewed, as documented below EXAMINATION: Vital sigans= Reviewed and documented below GENERAL DESCRIPTION: Middle-aged female lying in bed, no distress. No tachypnea or accessory muscle of respiration use. HEENT: Shows Pallor , no scleral icterus. Oral mucous membrane is dry. NECK: Trachea central, no thyromegaly. LUNGS: Unlabored breathing. Clear to auscultation anteriorly. No wheeze or crackle. HEART: S1, S2, regular rate and rhythm. ABDOMEN: Soft, mild flank tenderness , guarding or rigidity EXTREMITIES: No edema of feet. SKIN: No rash, no masses palpable. NEUROLOGICAL: The patient is awake, alert, oriented x3, mood and affect normal. LABS AND RADIOLOGY: Reviewed results see below Assessment : 1-Patient presented to hospital with sepsis in this patient did have fever elevated white count patient predominately did have a flank pain and did have a positive UA likely representing pyelonephritis patient is clinically not behaving as pneumonia as the patient did not have any respiratory symptoms of cough or any sputum production CT showing mostly atelectasis 2-patient with positive blood culture with gram-positive cocci could be related to her pyelonephritis however if finalize and staph epi will disregard as possible contamination Plan: 1-patient to continue with Rocephin and vancomycin discontinue Zithromax 2-gentle IV fluid 3-blood culture has been repeated document clearance of bacteremia We will follow on clinical condition and cultures to further adjust medication if needed Thank you for this consultation we will follow the patient along with you Past Medical History Past Medical History: No Reported History History of Any Multi-Drug Resistant Organisms: None Reported Past Surgical History: No Surgical Hx Reported Past Anesthesia/Blood Transfusion Reactions: No Reported Reaction Past Psychological History: No Psychological Hx Reported Smoking Status: Never smoker Past Alcohol Use History: None Reported Past Drug Use History: None Reported - Past Family History Mother History Unknown: Yes Father History Unknown: Yes Medications and Allergies Home Medications Medication Instructions Recorded Confirmed Type No Known Home Medications 01/29/21 01/29/21 History Allergies Allergy/AdvReac Type Severity Reaction Status Date / Time No Known Allergies Allergy Verified 01/29/21 23:15 Physical Exam Vitals: Vital Signs Temp Pulse Resp BP Pulse Ox 02/01/21 11:52 99.2 F 93 17 124/76 94 L 02/01/21 08:00 99.6 F 97 17 107/71 92 L 02/01/21 04:00 97.6 F 99 18 132/70 99 02/01/21 01:19 90 02/01/21 00:00 97.8 F 90 18 110/70 93 L 01/31/21 20:00 98.2 F 104 H 18 127/70 94 L 01/31/21 16:46 98 F 90 20 100/59 93 L Intake and Output 02/01/21 02/01/21 02/01/21 06:59 14:59 22:59 Intake Total 118 Output Total 600 180 Balance -600 -62 Intake: Oral 118 Output: Urine 600 Post Void Residual 180 Other: Voiding Method Toilet Weight 79.5 kg Results CBC & Chem 7: 02/01/21 08:49 02/01/21 08:49 Labs: Abnormal Lab Results - Last 24 Hours (Table) 01/31/21 01/31/21 01/31/21 Range/Units 09:21 16:31 19:57 WBC (3.8-10.6) k/uL RBC (3.80-5.40) m/uL Hgb (11.4-16.0) gm/dL Hct (34.0-46.0) % Neutrophils # (1.3-7.7) k/uL Sodium (137-145) mmol/L Potassium (3.5-5.1) mmol/L Carbon Dioxide (22-30) mmol/L Glucose (74-99) mg/dL POC Glucose (mg/dL) 174 H 184 H (75-99) mg/dL Hemoglobin A1c 11.5 H (4.0-6.0) % Calcium (8.4-10.2) mg/dL 02/01/21 02/01/21 02/01/21 Range/Units 06:55 08:49 08:49 WBC 21.2 H (3.8-10.6) k/uL RBC 3.75 L (3.80-5.40) m/uL Hgb 11.0 L (11.4-16.0) gm/dL Hct 32.0 L (34.0-46.0) % Neutrophils # 18.6 H (1.3-7.7) k/uL Sodium 129 L (137-145) mmol/L Potassium 3.4 L (3.5-5.1) mmol/L Carbon Dioxide 17 L (22-30) mmol/L Glucose 213 H (74-99) mg/dL POC Glucose (mg/dL) 243 H (75-99) mg/dL Hemoglobin A1c (4.0-6.0) % Calcium 6.8 L (8.4-10.2) mg/dL 02/01/21 Range/Units 11:40 WBC (3.8-10.6) k/uL RBC (3.80-5.40) m/uL Hgb (11.4-16.0) gm/dL Hct (34.0-46.0) % Neutrophils # (1.3-7.7) k/uL Sodium (137-145) mmol/L Potassium (3.5-5.1) mmol/L Carbon Dioxide (22-30) mmol/L Glucose (74-99) mg/dL POC Glucose (mg/dL) 167 H (75-99) mg/dL Hemoglobin A1c (4.0-6.0) % Calcium (8.4-10.2) mg/dL Microbiology - Last 24 Hours (Table) 01/31/21 14:45 Blood Culture Gram Stain - Preliminary Blood 01/31/21 14:45 Blood Culture - Final Blood 01/30/21 15:55 Urine Culture - Preliminary Urine,Voided Gram Neg Bacilli
[2021-02-02 11:08] LABS: Calcium 6.7 mg/dL (8.4-10.2); Potassium 3.6 mmol/L (3.5-5.1); Total Bilirubin 0.6 mg/dL (0.2-1.3); Total Protein 4.7 g/dL (6.3-8.2)
[2021-02-02 11:29] LABS: HCT 30.6 % (34.0-46.0); HGB 10.5 gm/dL (11.4-16.0); MCHC 34.4 g/dL (31.0-37.0); MCV 87.4 fL (80.0-100.0); Mean Platelet Volume 7.4; Platelet Count 302 k/uL (150-450); RDW 13.9 % (11.5-15.5); WBC 19.4 k/uL (3.8-10.6)
[2021-02-02 12:04] LABS: Glucose,Whole Blood 130 mg/dL (75-99)
--- NOTE | 2021-02-02 12:53 | P.PN ---
Subjective Progress Note Date: 02/02/21 Patient is a 55-year-old female came in with complains of rectal nausea vomiting with headache and backache has been getting progressively weak for about 3 days. Patient is found to be in diabetic acidosis patient was never diagnosed with discitis and do not have any hemoglobin A1c available at this time. Patient also had fevers today patient doesn't have any cough but chest x-ray was done which showed right lower lobe infiltrate initially patient was started on Zosyn empirically which will be transitioned to Rocephin and azithromycin. I also obtain a urine cultures and blood cultures which are pending. Patient is hyponatremic as well as hypokalemic secondary to nausea vomiting. Patient does have leukocytosis as well. 01/31/2021 Patient is evaluated today resting blood pressure still quite nauseous, she reports 1 episode of vomiting throughout the evening. She is on Reglan Zofran and Compazine. Urinalysis was positive, culture is pending patient is on IV Rocephin and by mouth Zithromax. Chest x-ray was reviewed and there was very minimal infiltrate, infection is likely related to UTI versus pneumonia. Patient was transitioned to Levemir with s/s coverage, sugars are in the 200s we will adjust insulin. She denies any dysuria burning or urgency. Last sensation white count 22.7, sodium 128, potassium 3.6, lactic acid 1.2, liver enzymes are within normal limits at 25 and 17. BUN 22, creatinine 1.09. We also swab for influenza A/P which were negative. Covid was negative. Patient is currently afebrile however had a temperature of 100.1 yesterday evening. Blood pressure is 114/66, 95% on room air she is tachycardic at 105. She is on a clear liquid diet. 02/01/2021 Patient she is still complaining of quite a bit of nausea. We did order an abdominal pelvis CT which showed small right pleural effusion, minimal free fluid within the pelvis, scattered mid infiltrates within the visualized lung bases particularly for atelectasis. Atypical pneumonia is not excluded. Urine cultures showing gram-negative bacilli, blood culture positive for gram-positive cocci, patient was started on IV Vanco with an infectious disease consultation. White blood cell count 21.2, hemoglobin 11, sodium 129, potassium 3.4, blood sugars in the 160s. Hemoglobin A1c came back at 11.5. Vitals today, Temp 99.2, Heart rate 93, blood pressure 124/76, 94% on room air. 02/02/2021 The patient nausea is much improved. She is ready to try a regular diet. We can advance as tolerated. ID feels patient may have represented more detailed pyelonephritis versus a pneumonia with Zithromax was discontinued and patient continues on IV Rocephin and IV Vanco. Blood culture finalized to show staph epidermidis, blood culture taken at the same time is negative this is most likely a contaminant. Labs today show white count 19.4, hemoglobin 10.5, sodium 133, potassium 3.6, CO2 111, CO2 14. Sugars are in the 140s. We will repeat labs tomorrow. Patient denies any cough, shortness of breath is improving. Temp 97.8, heart rate 76, blood pressure 124/78 and she is 97% on room air. ROS Constitutional: Reports fatigue. Cardio vascular: denied any chest pain, palpitations Gastrointestinal: Reports nausea which is improving, denies vomiting, denies diarrhea Pulmonary: Reports mild increase in shortness of breath, denies cough Neurologic denied any new focal deficits All inpatient medications were reviewed and appropriate changes in these medications as dictated in the interval history and assessment and plan. PHYSICAL EXAMINATION: GENERAL: The patient is alert and oriented x3, patient appears fatigued. Well developed, well nourished. HEENT: Pupils are round and equally reacting to light. EOMI. No scleral icterus. No conjunctival pallor. Normocephalic, atraumatic. No pharyngeal erythema. No thyromegaly. CARDIOVASCULAR: S1 and S2 present. No murmurs, rubs, or gallops. PULMONARY: Chest is clear to auscultation, no wheezing or crackles. ABDOMEN: Soft, nontender, nondistended, normoactive bowel sounds. No palpable organomegaly. MUSCULOSKELETAL: No joint swelling or deformity. EXTREMITIES: No cyanosis, clubbing, or pedal edema. NEUROLOGICAL: Gross neurological examination did not reveal any focal deficits. SKIN: No rashes. Assessment and plan -Diabetic ketoacidosis, resolved -New onset diabetes mellitus type 2 presenting with DKA, hgbA1c - 11.5 -Hyponatremia - hypovolemic hyponatremia and hyperosmolar hyponatremia secondary to diabetes mellitus, improving -Possible right lower lobe pneumonia with sepsis, ID feels UTI is more appropriate as source of sepsis, on room air, zithromax was discontinued -Urinary tract infection with sepsis complicated by possible pyelonephritis present on admission, culture shows E.Coli -Nausea, improving -Leukocytosis secondary to above -Hypokalemia potassium will be replaced -Tachycardia secondary to sepsis and metabolic acidosis DVT prophylaxis: Lovenox Plan Continue IV antibiotics Advance diet as tolerated to consistant carb Continue antiemetics Monitor blood sugars, insulin coverage Repeat labs tomorrow ID Consult Patient maybe able to discharge home tomorrow on oral antbiotics if she is tolerated a diet and her white count continues to trend down. Objective - Vital Signs Vital signs: Vital Signs Temp 98.3 F 02/02/21 04:00 Pulse 82 02/02/21 04:00 Resp 16 02/02/21 04:00 BP 116/71 02/02/21 04:00 Pulse Ox 94 L 02/02/21 04:00 Intake & Output 02/01/21 02/02/21 02/02/21 18:59 06:59 18:59 Intake Total 118 240 Output Total 1509 2400 Balance -1391 -2400 240 Intake: Oral 118 240 Output: Urine 1100 800 Post Void Residual 409 1600 Other: Voiding Method Toilet # Voids 1 - Labs CBC & Chem 7: 02/02/21 10:00 02/02/21 10:00 Labs: Abnormal Lab Results - Last 24 Hours (Table) 02/01/21 02/01/21 02/01/21 Range/Units 08:49 08:49 11:40 WBC 21.2 H (3.8-10.6) k/uL RBC 3.75 L (3.80-5.40) m/uL Hgb 11.0 L (11.4-16.0) gm/dL Hct 32.0 L (34.0-46.0) % Neutrophils # 18.6 H (1.3-7.7) k/uL Sodium 129 L (137-145) mmol/L Potassium 3.4 L (3.5-5.1) mmol/L Carbon Dioxide 17 L (22-30) mmol/L Glucose 213 H (74-99) mg/dL POC Glucose (mg/dL) 167 H (75-99) mg/dL Calcium 6.8 L (8.4-10.2) mg/dL 02/01/21 02/01/21 02/02/21 Range/Units 16:40 19:48 07:20 WBC (3.8-10.6) k/uL RBC (3.80-5.40) m/uL Hgb (11.4-16.0) gm/dL Hct (34.0-46.0) % Neutrophils # (1.3-7.7) k/uL Sodium (137-145) mmol/L Potassium (3.5-5.1) mmol/L Carbon Dioxide (22-30) mmol/L Glucose (74-99) mg/dL POC Glucose (mg/dL) 151 H 145 H 163 H (75-99) mg/dL Calcium (8.4-10.2) mg/dL Microbiology - Last 24 Hours (Table) 01/31/21 14:45 Blood Culture Gram Stain - Preliminary Blood Blood Culture - Preliminary Staphylococcus epidermidis 01/30/21 15:55 Urine Culture - Final Urine,Voided Escherichia coli 01/31/21 14:45 Blood Culture - Preliminary Blood No Growth after 24 hours 01/31/21 14:45 Blood Culture - Final Blood
[2021-02-02] MEDS ORDERED: POTASSIUM CHLORIDE ER 20 MEQ TAB.ER PO STA (12:54)
[2021-02-02 14:12] LABS: Band Neutrophils % 5 %; Lymphocytes # (M) 1.16 k/uL (1.0-4.8); Metamyelocytes # (M) 0.19 k/uL (0); Metamyelocytes % 1 %; Monocytes # (M) 0.58 k/uL (0-1.0); Myelocytes # (M) 0.78 k/uL (0); Myelocytes % 4 %; Neutrophils % (M) 82 %; Nucleated Red Blood Cells 0 /100 WBC (0-0); Total Cells Counted 200
[2021-02-02 14:14] LABS: Toxic Granulation Present
--- NOTE | 2021-02-02 15:24 | XR ---
EXAMINATION TYPE: XR chest 2V DATE OF EXAM: 02/02/2021 COMPARISON: 01/30/2021 HISTORY: Shortness of breath TECHNIQUE: Frontal and lateral views of the chest are obtained. FINDINGS: Scattered senescent parenchymal changes noted. Hyperinflation compatible with COPD. Mild increased density right medial lung base may reflect underlying infiltrate. Heart size is stable. Mediastinal structures are stable and grossly unremarkable. No evidence for hilar prominence. Degenerative changes dorsal spine. IMPRESSION: 1. Mild increased density right medial lung base may reflect underlying infiltrate.
[2021-02-02 16:32] LABS: Glucose,Whole Blood 108 mg/dL (75-99)
[2021-02-02 20:49] LABS: Glucose,Whole Blood 171 mg/dL (75-99)
--- NOTE | 2021-02-02 21:28 | PN ---
PROGRESS NOTE DATE OF SERVICE: 02/02/2021 REASON FOR FOLLOWUP: UTI and possible pneumonia. INTERVAL HISTORY: The patient is afebrile. The patient is breathing comfortably. Patient did have dry cough; not bringing up any sputum, though. No further nausea, vomiting, abdominal pain or diarrhea. PHYSICAL EXAMINATION: Blood pressure 133/76, pulse 75, temperature 97.4. She is 96% on room air. General description is a middle-aged female up in the bed in no distress. Respiratory system: Unlabored breathing, decreased intensity of breath sounds. No wheeze. Heart S1, S2. Regular rate and rhythm. Abdomen soft, no tenderness. LABS: Hemoglobin is 10.5, white count 19.4, creatinine 0.96. Chest x-ray repeat showing a left lower lobe infiltrate. DIAGNOSTIC IMPRESSION AND PLAN: 1. Patient with Escherichia coli urinary tract infection, possible pyelonephritis, with a question of possible pneumonia with elevated procalcitonin. Zithromax will be restarted. Continue Rocephin. 2. Possible Staphylococcus epidermidis contamination. Vancomycin was discontinued. MMODL / IJN: [id number] / TAN
[2021-02-03] MEDS: SODIUM CHLORIDE 0.9% 1,000 ML IV SCH ×2 (00:58→10:19)
[2021-02-03 06:33] LABS: Glucose,Whole Blood 149 mg/dL (75-99)
[2021-02-03] MEDS: INSULIN ASPART (NovoLOG) 100 UNIT/ML VIAL SQ SCH ×7 (06:48→21:12)
[2021-02-03] MEDS: PANTOPRAZOLE 40 MG/10 ML VIAL IVP SCH (08:15)
[2021-02-03] MEDS: INSULIN DETEMIR (LEVEMIR) 100 UNIT/ML SYR SQ SCH (08:15)
[2021-02-03] MEDS: ACETAMINOPHEN TAB 325 MG TAB PO PRN ×2 (08:15→17:02)
[2021-02-03] MEDS: ENOXAPARIN 40 MG/0.4 ML SYRINGE SQ SCH (08:19)
[2021-02-03 08:38] LABS: HCT 30.7 % (34.0-46.0); HGB 10.5 gm/dL (11.4-16.0); MCH 30.1 pg (25.0-35.0); MCHC 34.3 g/dL (31.0-37.0); MCV 87.6 fL (80.0-100.0); Mean Platelet Volume 7.2; Platelet Count 403 k/uL (150-450); RDW 14.1 % (11.5-15.5); WBC 21.3 k/uL (3.8-10.6)
[2021-02-03 08:55] LABS: Calcium 6.7 mg/dL (8.4-10.2); Magnesium 2.1 mg/dL (1.6-2.3); Potassium 3.5 mmol/L (3.5-5.1)
[2021-02-03] MEDS ORDERED: AZITHROMYCIN 250 MG TAB PO SCH (09:00)
[2021-02-03] MEDS ORDERED: POTASSIUM CHLORIDE ER 20 MEQ TAB.ER PO STA (09:11)
[2021-02-03 09:57] LABS: Band Neutrophils % 1 %; Eosinophils # (M) 0.21 k/uL (0-0.7); Metamyelocytes # (M) 1.07 k/uL (0); Metamyelocytes % 5 %; Monocytes # (M) 0.85 k/uL (0-1.0); Myelocytes # (M) 0.64 k/uL (0); Myelocytes % 3 %; Neutrophils % (M) 80 %; Nucleated Red Blood Cells 0 /100 WBC (0-0); Total Cells Counted 200
[2021-02-03 09:58] LABS: Anisocytosis (M) Present
[2021-02-03 10:01] LABS: Polychromasia Present; Toxic Granulation Present
[2021-02-03 11:29] LABS: Glucose,Whole Blood 196 mg/dL (75-99)
[2021-02-03] MEDS: POTASSIUM CHLORIDE ER 20 MEQ TAB.ER PO SCH (11:54)
[2021-02-03] MEDS ORDERED: SODIUM CHLORIDE 0.9% 1,000 ML IV SCH (14:15)
--- NOTE | 2021-02-03 14:16 | P.PN ---
Subjective Progress Note Date: 02/03/21 Patient is a 55-year-old female came in with complains of rectal nausea vomiting with headache and backache has been getting progressively weak for about 3 days. Patient is found to be in diabetic acidosis patient was never diagnosed with discitis and do not have any hemoglobin A1c available at this time. Patient also had fevers today patient doesn't have any cough but chest x-ray was done which showed right lower lobe infiltrate initially patient was started on Zosyn empirically which will be transitioned to Rocephin and azithromycin. I also obtain a urine cultures and blood cultures which are pending. Patient is hyponatremic as well as hypokalemic secondary to nausea vomiting. Patient does have leukocytosis as well. 01/31/2021 Patient is evaluated today resting blood pressure still quite nauseous, she reports 1 episode of vomiting throughout the evening. She is on Reglan Zofran and Compazine. Urinalysis was positive, culture is pending patient is on IV Rocephin and by mouth Zithromax. Chest x-ray was reviewed and there was very minimal infiltrate, infection is likely related to UTI versus pneumonia. Patient was transitioned to Levemir with s/s coverage, sugars are in the 200s we will adjust insulin. She denies any dysuria burning or urgency. Last sensation white count 22.7, sodium 128, potassium 3.6, lactic acid 1.2, liver enzymes are within normal limits at 25 and 17. BUN 22, creatinine 1.09. We also swab for influenza A/P which were negative. Covid was negative. Patient is currently afebrile however had a temperature of 100.1 yesterday evening. Blood pressure is 114/66, 95% on room air she is tachycardic at 105. She is on a clear liquid diet. 02/01/2021 Patient she is still complaining of quite a bit of nausea. We did order an abdominal pelvis CT which showed small right pleural effusion, minimal free fluid within the pelvis, scattered mid infiltrates within the visualized lung bases particularly for atelectasis. Atypical pneumonia is not excluded. Urine cultures showing gram-negative bacilli, blood culture positive for gram-positive cocci, patient was started on IV Vanco with an infectious disease consultation. White blood cell count 21.2, hemoglobin 11, sodium 129, potassium 3.4, blood sugars in the 160s. Hemoglobin A1c came back at 11.5. Vitals today, Temp 99.2, Heart rate 93, blood pressure 124/76, 94% on room air. 02/02/2021 The patient nausea is much improved. She is ready to try a regular diet. We can advance as tolerated. ID feels patient may have represented more detailed pyelonephritis versus a pneumonia with Zithromax was discontinued and patient continues on IV Rocephin and IV Vanco. Blood culture finalized to show staph epidermidis, blood culture taken at the same time is negative this is most likely a contaminant. Labs today show white count 19.4, hemoglobin 10.5, sodium 133, potassium 3.6, CO2 111, CO2 14. Sugars are in the 140s. We will repeat labs tomorrow. Patient denies any cough, shortness of breath is improving. Temp 97.8, heart rate 76, blood pressure 124/78 and she is 97% on room air. 02/03/2021 Patient evaluated today resting bed. She states that she is feeling much better, nausea improved. She is complaining of some lower back pain over the flank area is mildly tender. White count continues to be elevated at 21.3, ID consultation, she continues on IV Rocephin and azithromycin. Repeat blood cultures are pending patient is finalized tomorrow. Hopefully they're negative and white count is improving patient would like to be discharged home which could most likely be tomorrow. She was advanced to a consistent carb diet and she is tolerating well. We will set patient up with a glucometer and supplies pending discharge. Vital signs reviewed and they're stable, sodium 135, potassium 3.5, chloride 111, CO2 18. Decreased IV fluids and encourage oral intake. Patient has not used antiemetics since 02/01. ROS Constitutional: Reports fatigue. Cardio vascular: denied any chest pain, palpitations Gastrointestinal: Denies nausea, vomiting, diarrhea Pulmonary: Denies cough, shortness of breath Neurologic denied any new focal deficits All inpatient medications were reviewed and appropriate changes in these medications as dictated in the interval history and assessment and plan. PHYSICAL EXAMINATION: GENERAL: The patient is alert and oriented x3, patient appears fatigued. Well developed, well nourished. HEENT: Pupils are round and equally reacting to light. EOMI. No scleral icterus. No conjunctival pallor. Normocephalic, atraumatic. No pharyngeal erythema. No t hyromegaly. CARDIOVASCULAR: S1 and S2 present. No murmurs, rubs, or gallops. PULMONARY: Chest is clear to auscultation, no wheezing or crackles. ABDOMEN: Soft, nontender, nondistended, normoactive bowel sounds. No palpable organomegaly. MUSCULOSKELETAL: No joint swelling or deformity. EXTREMITIES: No cyanosis, clubbing, mild pedal edema NEUROLOGICAL: Gross neurological examination did not reveal any focal deficits. SKIN: No rashes. Assessment and plan -Diabetic ketoacidosis, resolved -New onset diabetes mellitus type 2 presenting with DKA, hgbA1c - 11.5 -Hyponatremia - hypovolemic hyponatremia and hyperosmolar hyponatremia secondary to diabetes mellitus, improving -Possible right lower lobe pneumonia with sepsis, on zithromax, ID Consult -Urinary tract infection with sepsis complicated by possible pyelonephritis present on admission, culture shows E.Coli, on IV rocephin -Leukocytosis secondary to above -Hypokalemia potassium will be replaced -Tachycardia secondary to sepsis and metabolic acidosis, resolved DVT prophylaxis: Lovenox Plan Continue IV antibiotics Monitor blood sugars, insulin coverage Repeat labs tomorrow ID Consult Repeat blood cultures pending Clinically patient is improving with antibiotic regimen, repeat labs tomorrow if white count is trending down and symptoms continue to improve she may be able to be discharged home. Pending finalized blood cultures as well and ID recommendations. Objective - Vital Signs Vital signs: Vital Signs Temp 98.0 F 02/03/21 08:14 Pulse 67 02/03/21 08:14 Resp 18 02/03/21 08:14 BP 133/79 02/03/21 08:14 Pulse Ox 97 02/03/21 08:14 Intake & Output 02/02/21 02/03/21 02/03/21 18:59 06:59 18:59 Intake Total 600 480 420 Output Total 400 Balance 600 480 20 Weight 85.4 kg Intake: Oral 600 480 420 Output: Urine 400 Other: Voiding Method Toilet Toilet Toilet # Voids 2 - Labs CBC & Chem 7: 02/03/21 07:03 02/03/21 07:03 Labs: Abnormal Lab Results - Last 24 Hours (Table) 02/02/21 02/02/21 02/02/21 Range/Units 10:00 16:30 20:13 WBC (3.8-10.6) k/uL RBC (3.80-5.40) m/uL Hgb (11.4-16.0) gm/dL Hct (34.0-46.0) % Neutrophils # (Manual) 16.80 H (1.3-7.7) k/uL Metamyelocytes # (Man) 0.19 H (0) k/uL Myelocytes # (Manual) 0.78 H (0) k/uL Sodium (137-145) mmol/L Chloride (98-107) mmol/L Carbon Dioxide (22-30) mmol/L Glucose (74-99) mg/dL POC Glucose (mg/dL) 108 H 171 H (75-99) mg/dL Calcium (8.4-10.2) mg/dL 02/03/21 02/03/21 02/03/21 Range/Units 05:51 07:03 07:03 WBC 21.3 H (3.8-10.6) k/uL RBC 3.50 L (3.80-5.40) m/uL Hgb 10.5 L (11.4-16.0) gm/dL Hct 30.7 L (34.0-46.0) % Neutrophils # (Manual) 17.20 H (1.3-7.7) k/uL Metamyelocytes # (Man) 1.07 H (0) k/uL Myelocytes # (Manual) 0.64 H (0) k/uL Sodium 135 L (137-145) mmol/L Chloride 111 H (98-107) mmol/L Carbon Dioxide 18 L (22-30) mmol/L Glucose 130 H (74-99) mg/dL POC Glucose (mg/dL) 149 H (75-99) mg/dL Calcium 6.7 L (8.4-10.2) mg/dL 02/03/21 Range/Units 11:27 WBC (3.8-10.6) k/uL RBC (3.80-5.40) m/uL Hgb (11.4-16.0) gm/dL Hct (34.0-46.0) % Neutrophils # (Manual) (1.3-7.7) k/uL Metamyelocytes # (Man) (0) k/uL Myelocytes # (Manual) (0) k/uL Sodium (137-145) mmol/L Chloride (98-107) mmol/L Carbon Dioxide (22-30) mmol/L Glucose (74-99) mg/dL POC Glucose (mg/dL) 196 H (75-99) mg/dL Calcium (8.4-10.2) mg/dL Microbiology - Last 24 Hours (Table) 02/02/21 10:00 Blood Culture - Preliminary Blood No Growth after 24 hours 01/31/21 14:45 Blood Culture - Preliminary Blood No Growth after 48 hours 02/01/21 14:56 Blood Culture - Preliminary Blood No Growth after 24 hours
--- NOTE | 2021-02-03 16:33 | P.DS ---
Providers Date of admission: 01/29/21 23:55 Attending physician: Negar Santos Consults: 02/01/21 13:29 Consult Physician Routine Consulting Provider: Lubna Campos Consult Reason/Comments: luekocytosis, UTI, pneumonia Do you want consulting provider notified?: Yes Primary care physician: Stated None Hospital Course: Patient left AMA. WBC today 21.3, not cleared from medical and ID services as cultures are still pending. Please see progress note dated 02/03/2021 for additional information regarding hospitalization. Patient was given a sample glucometer, however, she did not meet with CM as intended for thursday to set up additional supplies for testing blood sugars. Patient Condition at Discharge: Serious Plan - Discharge Summary Discharge Rx Participant: No New Discharge Prescriptions: New Insulin Aspart [NovoLOG Flexpen] 2 units SQ AC-TID #4 pen Insulin Glargine,Hum.rec.anlog [Lantus Solostar Pen] 20 unit SQ HS #6 pen Azithromycin [Zithromax] 250 mg PO DAILY #6 tab Discharge Medication List Azithromycin [Zithromax] 250 mg PO DAILY #6 tab 02/03/21 [Rx] Insulin Aspart [NovoLOG Flexpen] 2 units SQ AC-TID #4 pen 02/03/21 [Rx] Insulin Glargine,Hum.rec.anlog [Lantus Solostar Pen] 20 unit SQ HS #6 pen 02/03/21 [Rx] Follow up Appointment(s)/Referral(s): None,Stated [Primary Care Provider] - 1-2 days Activity/Diet/Wound Care/Special Instructions: Patient left AMA
[2021-02-03 16:50] LABS: Glucose,Whole Blood 176 mg/dL (75-99)
[2021-02-03 20:08] LABS: Glucose,Whole Blood 274 mg/dL (75-99)
[2021-02-03] MEDS: AMPICILLIN-SULBACTAM 3 GM in SODIUM CHLORIDE 0.9% 100 ML IVPB SCH (21:13)
--- NOTE | 2021-02-03 21:33 | PN ---
PROGRESS NOTE DATE OF SERVICE: 02/03/2021 REASON FOR FOLLOWUP: UTI and a question of pneumonia. Positive blood culture. INTERVAL HISTORY: The patient is afebrile. The patient is currently feeling better. She is breathing more comfortably. Denies having any chest pain. Cough has decreased in intensity. Not bringing up any sputum. The flank pain has improved. No further vomiting. No abdominal pain or diarrhea. PHYSICAL EXAMINATION: Blood pressure 123/76, pulse of 73, temperature 98. She is 95% on room air. General description is a middle-aged female lying in bed in no distress. Respiratory system: Unlabored breathing, decreased intensity of breath sounds. No wheeze. Heart S1, S2. Regular rate and rhythm. Abdomen soft, no tenderness. LABS: Hemoglobin is 10.4, white count 1.3, creatinine 0.97. Blood culture repeat has been pending so far. DIAGNOSTIC IMPRESSION AND PLAN: 1. Patient with possible Staphylococcus epidermidis, likely contaminant. Repeat culture negative. No need for vancomycin. 2. Patient with Escherichia coli pyelonephritis. Patient did have significant vomiting, has some infiltrate on the right side with concern for possible aspiration pneumonitis. Antibiotic will be adjusted to Unasyn and if the white count does show a downward trend, may finish therapy with oral Augmentin. Hold her discharge today. Continue with supportive care. MMODL / IJN: [id number] /
[2021-02-03] MEDS: TEMAZEPAM 15 MG CAP PO PRN (22:03)
[2021-02-03] MEDS: ONDANSETRON 4 MG/2 ML VIAL IVP PRN (22:04)
[2021-02-04] MEDS: AMPICILLIN-SULBACTAM 3 GM in SODIUM CHLORIDE 0.9% 100 ML IVPB SCH ×5 (04:32→23:54)
[2021-02-04 05:56] LABS: Glucose,Whole Blood 149 mg/dL (75-99)
[2021-02-04] MEDS: PANTOPRAZOLE 40 MG TABLET PO SCH (06:39)
[2021-02-04] MEDS: METOCLOPRAMIDE 5 MG/ML 2 ML VIAL IVP PRN (07:50)
[2021-02-04] MEDS: ONDANSETRON 4 MG/2 ML VIAL IVP PRN ×2 (07:50→21:37)
[2021-02-04 08:21] LABS: Calcium 7.4 mg/dL (8.4-10.2); Potassium 4.2 mmol/L (3.5-5.1)
[2021-02-04 08:36] LABS: C Reactive Protein 14.1 mg/dL (<1.0)
[2021-02-04 09:00] LABS: HCT 32.6 % (34.0-46.0); HGB 11.2 gm/dL (11.4-16.0); MCH 29.7 pg (25.0-35.0); MCHC 34.4 g/dL (31.0-37.0); MCV 86.5 fL (80.0-100.0); Platelet Count 484 k/uL (150-450); RBC 3.77 m/uL (3.80-5.40); RDW 14.3 % (11.5-15.5); WBC 26.3 k/uL (3.8-10.6)
[2021-02-04] MEDS: INSULIN ASPART (NovoLOG) 100 UNIT/ML VIAL SQ SCH ×7 (09:57→21:38)
[2021-02-04] MEDS: ENOXAPARIN 40 MG/0.4 ML SYRINGE SQ SCH (10:07)
[2021-02-04] MEDS: POTASSIUM CHLORIDE ER 20 MEQ TAB.ER PO SCH (10:08)
[2021-02-04 12:20] LABS: Glucose,Whole Blood 264 mg/dL (75-99)
[2021-02-04] MEDS: INSULIN DETEMIR (LEVEMIR) 100 UNIT/ML SYR SQ SCH (12:20)
--- NOTE | 2021-02-04 12:30 | P.PN ---
Subjective Progress Note Date: 02/04/21 Patient is a 55-year-old female came in with complains of rectal nausea vomiting with headache and backache has been getting progressively weak for about 3 days. Patient is found to be in diabetic acidosis patient was never diagnosed with discitis and do not have any hemoglobin A1c available at this time. Patient also had fevers today patient doesn't have any cough but chest x-ray was done which showed right lower lobe infiltrate initially patient was started on Zosyn empirically which will be transitioned to Rocephin and azithromycin. I also obtain a urine cultures and blood cultures which are pending. Patient is hyponatremic as well as hypokalemic secondary to nausea vomiting. Patient does have leukocytosis as well. 01/31/2021 Patient is evaluated today resting blood pressure still quite nauseous, she reports 1 episode of vomiting throughout the evening. She is on Reglan Zofran and Compazine. Urinalysis was positive, culture is pending patient is on IV Rocephin and by mouth Zithromax. Chest x-ray was reviewed and there was very minimal infiltrate, infection is likely related to UTI versus pneumonia. Patient was transitioned to Levemir with s/s coverage, sugars are in the 200s we will adjust insulin. She denies any dysuria burning or urgency. Last sensation white count 22.7, sodium 128, potassium 3.6, lactic acid 1.2, liver enzymes are within normal limits at 25 and 17. BUN 22, creatinine 1.09. We also swab for influenza A/P which were negative. Covid was negative. Patient is currently afebrile however had a temperature of 100.1 yesterday evening. Blood pressure is 114/66, 95% on room air she is tachycardic at 105. She is on a clear liquid diet. 02/01/2021 Patient she is still complaining of quite a bit of nausea. We did order an abdominal pelvis CT which showed small right pleural effusion, minimal free fluid within the pelvis, scattered mid infiltrates within the visualized lung bases particularly for atelectasis. Atypical pneumonia is not excluded. Urine cultures showing gram-negative bacilli, blood culture positive for gram-positive cocci, patient was started on IV Vanco with an infectious disease consultation. White blood cell count 21.2, hemoglobin 11, sodium 129, potassium 3.4, blood sugars in the 160s. Hemoglobin A1c came back at 11.5. Vitals today, Temp 99.2, Heart rate 93, blood pressure 124/76, 94% on room air. 02/02/2021 The patient nausea is much improved. She is ready to try a regular diet. We can advance as tolerated. ID feels patient may have represented more detailed pyelonephritis versus a pneumonia with Zithromax was discontinued and patient continues on IV Rocephin and IV Vanco. Blood culture finalized to show staph epidermidis, blood culture taken at the same time is negative this is most likely a contaminant. Labs today show white count 19.4, hemoglobin 10.5, sodium 133, potassium 3.6, CO2 111, CO2 14. Sugars are in the 140s. We will repeat labs tomorrow. Patient denies any cough, shortness of breath is improving. Temp 97.8, heart rate 76, blood pressure 124/78 and she is 97% on room air. 02/03/2021 Patient evaluated today resting bed. She states that she is feeling much better, nausea improved. She is complaining of some lower back pain over the flank area is mildly tender. White count continues to be elevated at 21.3, ID consultation, she continues on IV Rocephin and azithromycin. Repeat blood cultures are pending patient is finalized tomorrow. Hopefully they're negative and white count is improving patient would like to be discharged home which could most likely be tomorrow. She was advanced to a consistent carb diet and she is tolerating well. We will set patient up with a glucometer and supplies pending discharge. Vital signs reviewed and they're stable, sodium 135, potassium 3.5, chloride 111, CO2 18. Decreased IV fluids and encourage oral intake. Patient has not used antiemetics since 02/01. 02/04/2021 Patient evaluated today sitting up in the chair. She is ambulatory around the room. She is short of breath with exertion however lungs are clear. She states the shortness of breath is increasing as compared to yesterday. We will repeat a chest x-ray. She continues on antibiotics in the form of IV Unasyn. She was scheduled right of the membranes examined apparently did not take those doses as she was nervous about feeling nauseous. She is receiving Unasyn today and will give antiemetics. If her white count was tomorrow she can be discharged home on oral Augmentin. Today her white blood cell count increased again to 26.3. There is no fevers, patient denies any chills. Heart rate 80, blood pressure 149/78 and she is 96% on room air. Additional labs hemoglobin 11.2, sodium 137, potassium 4.2, chloride 108, CO2 18, sugars are in the 170s, CRP 14.1. Pro- calcitonin and d-dimer are pending. 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 She does not have a primary care provider. ROS Constitutional: Reports fatigue. Cardio vascular: denied any chest pain, palpitations Gastrointestinal: Denies nausea, vomiting, diarrhea Pulmonary: Denies cough, Reports shortness of breath with exertion. Neurologic denied any new focal deficits All inpatient medications were reviewed and appropriate changes in these medications as dictated in the interval history and assessment and plan. PHYSICAL EXAMINATION: GENERAL: The patient is alert and oriented x3, patient appears fatigued. Well developed, well nourished. HEENT: Pupils are round and equally reacting to light. EOMI. No scleral icterus. No conjunctival pallor. Normocephalic, atraumatic. No pharyngeal erythema. No thyromegaly. CARDIOVASCULAR: S1 and S2 present. No murmurs, rubs, or gallops. PULMONARY: Chest is clear to auscultation, no wheezing or crackles. Lungs are tight today ABDOMEN: Soft, nontender, nondistended, normoactive bowel sounds. No palpable organomegaly. MUSCULOSKELETAL: No joint swelling or deformity. EXTREMITIES: No cyanosis, clubbing, mild pedal edema NEUROLOGICAL: Gross neurological examination did not reveal any focal deficits. SKIN: No rashes. Assessment and plan -Shortness of breath, unknown etiology, work up in progress -Diabetic ketoacidosis, resolved -New onset diabetes mellitus type 2 presenting with DKA, hgbA1c - 11.5 -Hyponatremia - hypovolemic hyponatremia and hyperosmolar hyponatremia secondary to diabetes mellitus, improving -Possible right lower lobe pneumonia with sepsis, infiltrate on xray we will repeat, finished course of therapy with zithromax. -Urinary tract infection with sepsis complicated by possible pyelonephritis present on admission, culture shows E.Coli, on IV rocephin -Leukocytosis secondary to above, increasing -Hypokalemia potassium will be replaced -Tachycardia secondary to sepsis and metabolic acidosis, resolved DVT prophylaxis: Lovenox Plan Continue IV antibiotics Monitor blood sugars, insulin coverage Repeat labs tomorrow ID Consult Repeat blood cultures pending If WBC trends down tomorrow patient can be discharged home on oral augmentin. Objective - Vital Signs Vital signs: Vital Signs Temp 97.9 F 02/04/21 07:55 Pulse 80 02/04/21 07:55 Resp 18 02/04/21 07:59 BP 149/78 02/04/21 07:55 Pulse Ox 96 02/04/21 07:55 Intake & Output 02/03/21 02/04/21 02/04/21 18:59 06:59 18:59 Intake Total 600 120 Output Total 400 Balance 200 120 Weight 85.4 kg Intake: Oral 600 120 Output: Urine 400 Other: Voiding Method Toilet Toilet Toilet # Voids 1 - Labs CBC & Chem 7: 02/04/21 07:41 02/04/21 07:41 Labs: Abnormal Lab Results - Last 24 Hours (Table) 02/03/21 02/03/21 02/04/21 Range/Units 16:48 20:05 05:47 WBC (3.8-10.6) k/uL RBC (3.80-5.40) m/uL Hgb (11.4-16.0) gm/dL Hct (34.0-46.0) % Plt Count (150-450) k/uL Chloride (98-107) mmol/L Carbon Dioxide (22-30) mmol/L Glucose (74-99) mg/dL POC Glucose (mg/dL) 176 H 274 H 149 H (75-99) mg/dL Calcium (8.4-10.2) mg/dL C-Reactive Protein (<1.0) mg/dL 02/04/21 02/04/21 02/04/21 Range/Units 07:41 07:41 12:05 WBC 26.3 H (3.8-10.6) k/uL RBC 3.77 L (3.80-5.40) m/uL Hgb 11.2 L (11.4-16.0) gm/dL Hct 32.6 L (34.0-46.0) % Plt Count 484 H (150-450) k/uL Chloride 108 H (98-107) mmol/L Carbon Dioxide 18 L (22-30) mmol/L Glucose 172 H (74-99) mg/dL POC Glucose (mg/dL) 264 H (75-99) mg/dL Calcium 7.4 L (8.4-10.2) mg/dL C-Reactive Protein 14.1 H (<1.0) mg/dL Microbiology - Last 24 Hours (Table) 01/31/21 14:45 Blood Culture - Preliminary Blood No Growth after 72 hours 02/01/21 14:56 Blood Culture - Preliminary Blood No Growth after 48 hours 01/31/21 14:45 Blood Culture Gram Stain - Final Blood Blood Culture - Final Staphylococcus epidermidis 02/02/21 10:00 Blood Culture - Preliminary Blood No Growth after 24 hours
[2021-02-04 13:41] LABS: Band Neutrophils % 3 %; Eosinophils # (M) 0.26 k/uL (0-0.7); Metamyelocytes # (M) 0.26 k/uL (0); Metamyelocytes % 1 %; Monocytes # (M) 1.05 k/uL (0-1.0); Myelocytes # (M) 0.26 k/uL (0); Myelocytes % 1 %; Neutrophils % (M) 83 %; Nucleated Red Blood Cells 0 /100 WBC (0-0); Total Cells Counted 200
[2021-02-04 13:42] LABS: Anisocytosis (M) Present
[2021-02-04 13:43] LABS: Poikilocytosis (M) Present
[2021-02-04 16:57] LABS: Glucose,Whole Blood 308 mg/dL (75-99)
[2021-02-04 20:17] LABS: Glucose,Whole Blood 254 mg/dL (75-99)
[2021-02-04] MEDS: TEMAZEPAM 15 MG CAP PO PRN (21:37)
[2021-02-04] MEDS: ACETAMINOPHEN TAB 325 MG TAB PO PRN (21:38)
--- NOTE | 2021-02-04 22:12 | PN ---
PROGRESS NOTE DATE OF SERVICE: 02/04/2021 REASON FOR FOLLOWUP: E. coli pyelonephritis and leukocytosis. INTERVAL HISTORY: Patient is afebrile. Unfortunately, patient has missed two doses of Unasyn as the patient has been nauseated with it. Primary team were notified as of early this morning. The patient denies having any chest pain, shortness of breath, cough. The patient's leg pain has much improved. No diarrhea. EXAMINATION: Her blood pressure 112/78 with a pulse of 72, temperature 98. She is 95% on room air. General description is a middle-aged female up in the bed in no distress. Respiratory system: Unlabored breathing, clear to auscultation anteriorly. Heart S1, S2. Regular rate and rhythm. Abdomen soft, no tenderness. LABS: White count up to 26.3. Creatinine 0.92. DIAGNOSTIC IMPRESSION AND PLAN: 1. Patient with E coli pyelonephritis. Covered with Unasyn. Missed two doses. The patient has been advised to continue to take the medication. If needed, Zofran will be provided. Repeat CBC tomorrow. 2. Patient with positive blood culture, Staph epi likely contaminant. Repeat blood culture has been negative. MMODL / IJN: [id number] / MTDD
[2021-02-05 00:41] VITALS: RESP 16
[2021-02-05] MEDS: ACETAMINOPHEN TAB 325 MG TAB PO PRN (03:58)
[2021-02-05] MEDS: ONDANSETRON 4 MG/2 ML VIAL IVP PRN ×2 (03:58→12:37)
[2021-02-05 06:02] LABS: Glucose,Whole Blood 224 mg/dL (75-99)
[2021-02-05] MEDS: INSULIN ASPART (NovoLOG) 100 UNIT/ML VIAL SQ SCH ×4 (06:29→12:33)
[2021-02-05] MEDS: AMPICILLIN-SULBACTAM 3 GM in SODIUM CHLORIDE 0.9% 100 ML IVPB SCH ×2 (06:29→12:33)
[2021-02-05] MEDS: PANTOPRAZOLE 40 MG TABLET PO SCH (06:29)
[2021-02-05 06:39] LABS: Albumin 2.4 g/dL (3.5-5.0); Calcium 7.3 mg/dL (8.4-10.2); Potassium 4.1 mmol/L (3.5-5.1); Total Bilirubin 0.6 mg/dL (0.2-1.3); Total Protein 5.3 g/dL (6.3-8.2)
--- NOTE | 2021-02-05 06:51 | XR ---
EXAMINATION TYPE: XR chest 2V DATE OF EXAM: 02/05/2021 COMPARISON: Chest x-ray 3 days ago. HISTORY: Dyspnea. TECHNIQUE: Frontal and lateral views of the chest are obtained. FINDINGS: There is stable small to tiny right pleural effusion and right basilar opacity. Left lung remains clear. The cardiac silhouette size is stable and within normal limits. Overlying EKG leads r edemonstrated. The osseous structures are intact. IMPRESSION: Small to tiny right pleural effusion with right middle and lower lobe acute infiltrates and/or atelectasis redemonstrated. No significant change from most recent x-ray.
[2021-02-05 07:14] LABS: HCT 31.2 % (34.0-46.0); HGB 10.8 gm/dL (11.4-16.0); MCH 29.8 pg (25.0-35.0); MCHC 34.4 g/dL (31.0-37.0); MCV 86.6 fL (80.0-100.0); Mean Platelet Volume 7.2; Platelet Count 575 k/uL (150-450); RBC 3.61 m/uL (3.80-5.40); RDW 14.5 % (11.5-15.5); WBC 22.3 k/uL (3.8-10.6)
[2021-02-05 08:52] LABS: Anisocytosis (M) Present; Band Neutrophils % 1 %; Lymphocytes # (M) 0.89 k/uL (1.0-4.8); Metamyelocytes # (M) 0.45 k/uL (0); Metamyelocytes % 2 %; Monocytes # (M) 1.12 k/uL (0-1.0); Myelocytes # (M) 0.89 k/uL (0); Myelocytes % 4 %; Neutrophils % (M) 86 %; Nucleated Red Blood Cells 0 /100 WBC (0-0); Poikilocytosis (M) Present; Polychromasia Present; Total Cells Counted 200
[2021-02-05] MEDS: INSULIN DETEMIR (LEVEMIR) 100 UNIT/ML SYR SQ SCH (09:25)
[2021-02-05] MEDS: ENOXAPARIN 40 MG/0.4 ML SYRINGE SQ SCH (09:25)
[2021-02-05] MEDS: POTASSIUM CHLORIDE ER 20 MEQ TAB.ER PO SCH (09:26)
[2021-02-05 09:30] VITALS: TEMP 97.7
[2021-02-05 10:45] LABS: Reticulocyte % 1.1 % (0.5-2.0)
[2021-02-05 11:42] LABS: Glucose,Whole Blood 199 mg/dL (75-99)
[2021-02-05 11:43] LABS: LDH 625 U/L (313-618)
[2021-02-05 12:42] VITALS: BP 159/80; PULSE 79
--- NOTE | 2021-02-05 13:28 | PN ---
PROGRESS NOTE DATE OF SERVICE: 02/05/2021 REASON FOR FOLLOWUP: E coli pyelonephritis and possible aspiration pneumonitis. INTERVAL HISTORY: Patient is afebrile. The patient is feeling better. Breathing comfortably. Denies having any chest pain. No shortness of breath. Cough has decreased intensity. No abdominal pain. No flank pain. No diarrhea. No further nausea or vomiting. PHYSICAL EXAMINATION: Blood pressure 151/79, pulse 77, temp 97.5. She is 95% on room air. General description is a middle-aged female up in the chair in no distress. Respiratory system: Unlabored breathing, decreased intensity in breath sounds, with no wheeze. Heart S1, S2. Regular rate and rhythm. Abdomen soft, no tenderness. LABS: White count 22.3, creatinine 0.91. DIAGNOSTIC IMPRESSION AND PLAN: Patient with E coli right-sided pyelonephritis, possible aspiration pneumonitis. the patient white count responded to the Unasyn. Plan to continue oral Augmentin and may need Zofran for symptomatic relief. Advised if any new fever or worsening symptoms to let us know right away. Continue supportive care. MMODL / IJN: [id number] / TAN
--- NOTE | 2021-02-05 15:29 | P.DS ---
Providers Date of admission: 01/29/21 23:55 Attending physician: Negar Santos Consults: 02/01/21 13:29 Consult Physician Routine Consulting Provider: Lubna Campos Consult Reason/Comments: luekocytosis, UTI, pneumonia Do you want consulting provider notified?: Yes 02/04/21 14:18 Consult Physician Routine Consulting Provider: Gagandeep Cooper Consult Reason/Comments: Leukocytosis unexplained Do you want consulting provider notified?: Yes Primary care physician: Stated None Hospital Course: Final Diagnosis -Shortness of breath, resolving, possible due to pneumonia -Elevated D-dimer; CTA ordered however patient refused. -Diabetic ketoacidosis, resolved -New onset diabetes mellitus type 2 presenting with DKA, hgbA1c - 11.5 -Hyponatremia - hypovolemic hyponatremia and hyperosmolar hyponatremia secondary to diabetes mellitus -Possible right lower lobe pneumonia with sepsis, infiltrate on xray, finished course of therapy with zithromax. -Urinary tract infection with sepsis complicated by possible pyelonephritis present on admission, culture shows E.Coli -Leukocytosis secondary to above -Hypokalemia secondary to above -Tachycardia secondary to sepsis and metabolic acidosis, resolved Discharge Disposition Patient is discharged on Basaglar long acting insulin as well as metformin BID.. She will need to follow up closely in a primary care office. Cost factor of medications is important for this patient, she will need close blood sugar monitoring and f/u outpatient. Repeat labs in 2 days for leukocytosis. Finish course of therapy with augmentin. Patient unfortunately refused a the chest CT angiography to evaluate for PE as she states she is not short of breath and wants to go home. Risks vs. benefit discussed with the patient. She can follow up with provided primary care for re-evaluation and follow up of D-Dimer and symptoms. Hospital Course This is a 55-year-old female who presents to the hospital with complaints of nausea vomiting as well as headache and backache that has impressively getting worse for about 3 days. Patient has a past medical history and does not take any medications at home. 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 She denies any tobacco use, alcohol use, drug use. Patient was found to be in diabetic ketoacidosis on admission and she has not been diagnosed with diabetes in the past. She was started on insulin drip. Hemoglobin A1c was found to be 11.5. Patient also have fevers on admission however there was no cough. Chest x-ray initially showed right lower lobe infiltrate and she was started on Zosyn empirically and then transitioned to Rocephin and azithromycin. Urine cultures showed E. coli. Patient denies any dysuria, burning or discomfort. She continues to complain of some lower flank pain. Patient was also found to be hyponatremic as well as hypokalemic secondary to nausea vomiting and she had significant leukocytosis that continue to increase this admission. It maxed out yesterday on February 04 at 26, however she responded to IV Unasyn and her white count is beginning to trend back down now is not 23. She is followed closely by infectious diseases recommended discharge on oral Augmentin to finish a course of antibiotic therapy. Patient also apparently complained of some shortness of breath that was worse with exertion, yesterday she appeared quite winded after walking from the chair to the bathroom. We did order a d-dimer that came back elevated at 2.06, will have patient undergo a chest CTA prior to discharge, which she ultimately refused as she states she was not experiencing symptoms and her shortness of breath had much improved. Patient had 1 positive blood culture that was positive for Staphylococcus epidermidis which is a contaminant as she had blood cultures 2 have been negative after 72 hours. Patient did receive IV hydration this admission, BNP was found to be 1680, however there is no clinical signs for fluid overload. LDH 625, CRP 14.1 COVID CPR negative. Vital signs include a temperature today of 97.7, blood pressure 159/80 and she is 99% on room air. Heart rate is 79 sinus rhythm. 02/05/2021 Patient evaluated today sitting up in the chair. She denies any further episodes of vomiting or diarrhea she continues with her episodes of nausea. She is tolerating a diet well and continue on oral Zofran for discharge. She finished a course of Zithromax and will discharge on oral Augmentin after responding to IV Unasyn. As her white count is down to 23. We will also started on a small dose of lisinopril as she is diabetic and her pressures are in the 160s today. She is still stable for discharge. Incidentally d-dimer was found to be 2.09, Patient again refused CTA of chest to rule out PE as described above. Clinically, lungs are clear shortness of breath has improved, and her oxygen saturation is adequate on room air. There is no peripheral edema, swelling, redness to suggest DVT. Today lungs are clear there is no abdominal tenderness, positive bowel sounds, S1-S2 auscultated. Focal neurological exam is negative. She denies any chest pain, cough, shortness of breath. Vital signs stable. Cleared by Infectious disease. Please see medication reconciliation for a list of current medication. Thank you for allowing us to participate in the care of this patient. Patient Condition at Discharge: Fair Plan - Discharge Summary Discharge Rx Participant: No New Discharge Prescriptions: New Omeprazole [PriLOSEC] 20 mg PO AC-BID 30 Days #60 cap Ondansetron [Zofran] 4 mg PO Q8HR PRN #9 tab PRN Reason: Nausea Amoxicillin/Potassium Clav [Augmentin 875-125 Tablet] 1 tab PO BID 10 Days #20 tab Insulin Glargine,Hum.rec.anlog [Basaglar Kwikpen U-100] 30 unit SQ HS #10 each metFORMIN HCL [Glucophage] 500 mg PO BID 30 Days #60 tab lisinopriL [Zestril] 5 mg PO DAILY #30 tablet Discharge Medication List Amoxicillin/Potassium Clav [Augmentin 875-125 Tablet] 1 tab PO BID 10 Days #20 tab 02/05/21 [Rx] Insulin Glargine,Hum.rec.anlog [Basaglar Kwikpen U-100] 30 unit SQ HS #10 each 02/05/21 [Rx] Omeprazole [PriLOSEC] 20 mg PO AC-BID 30 Days #60 cap 02/05/21 [Rx] Ondansetron [Zofran] 4 mg PO Q8HR PRN #9 tab 02/05/21 [Rx] lisinopriL [Zestril] 5 mg PO DAILY #30 tablet 02/05/21 [Rx] metFORMIN HCL [Glucophage] 500 mg PO BID 30 Days #60 tab 02/05/21 [Rx] Follow up Appointment(s)/Referral(s): Gagandeep Cooper MD [STAFF PHYSICIAN] - 1 Week Nikunj Dennis MD [STAFF PHYSICIAN] - 1 Week Lubna Campos MD [STAFF PHYSICIAN] - 1 Week Ambulatory/Diagnostic Orders: Basic Metabolic Panel [LAB.AMB] Time Frame: 2 Days, Location: None Selected Complete Blood Count w/diff [LAB.AMB] Time Frame: 2 Days, Location: None Selected Patient Instructions/Handouts: Diabetic Ketoacidosis (DC) Discharge Disposition: HOME SELF-CARE
--- NOTE | 2021-02-05 16:43 | P.CONS ---
History of Present Illness - Reason for Consult Consult date: 02/05/21 Cytopenias Requesting physician: Andrés Ferreira - History of Present Illness Aretha presents to [facility] and found to have Review of Systems All systems: negative Constitutional: Reports as per HPI Past Medical History Past Medical History: No Reported History History of Any Multi-Drug Resistant Organisms: None Reported Past Surgical History: No Surgical Hx Reported Past Anesthesia/Blood Transfusion Reactions: No Reported Reaction Past Psychological History: No Psychological Hx Reported Smoking Status: Never smoker Past Alcohol Use History: None Reported Past Drug Use History: None Reported - Past Family History Mother History Unknown: Yes Father History Unknown: Yes Medications and Allergies Home Medications Medication Instructions Recorded Confirmed Type Amoxicillin/Potassium Clav 1 tab PO BID 10 Days #20 tab 02/05/21 Rx [Augmentin 875-125 Tablet] Insulin Glargine,Hum.rec.anlog 30 unit SQ HS #10 each 02/05/21 Rx [Basaglar Kwikpen U-100] Omeprazole [PriLOSEC] 20 mg PO AC-BID 30 Days #60 cap 02/05/21 Rx Ondansetron [Zofran] 4 mg PO Q8HR PRN #9 tab 02/05/21 Rx lisinopriL [Zestril] 5 mg PO DAILY #30 tablet 02/05/21 Rx metFORMIN HCL [Glucophage] 500 mg PO BID 30 Days #60 tab 02/05/21 Rx Allergies Allergy/AdvReac Type Severity Reaction Status Date / Time No Known Allergies Allergy Verified 01/29/21 23:15 Physical Exam Vitals: Vital Signs Temp Pulse Resp BP Pulse Ox 02/05/21 08:00 97.7 F 77 16 161/79 95 02/05/21 05:44 98.2 F 74 16 140/68 96 02/05/21 00:40 98.2 F 75 16 131/70 94 L 02/04/21 20:00 98.4 F 81 18 141/76 95 02/04/21 14:00 98.0 F 72 18 112/78 95 Intake and Output 02/04/21 02/05/21 02/05/21 22:59 06:59 14:59 Intake Total 200 118 Balance 200 118 Intake: Oral 200 118 Other: Voiding Method Toilet # Voids 2 Weight 85.9 kg - Constitutional General appearance: cooperative - EENT Eyes: EOMI, PERRLA ENT: NA/AT - Neck Neck: normal ROM - Respiratory Respiratory: bilateral: CTA - Cardiovascular Rhythm: regular - Gastrointestinal General gastrointestinal: soft - Integumentary Integumentary: pale - Neurologic Neurologic: CNII-XII intact - Musculoskeletal Musculoskeletal: gait normal - Psychiatric Psychiatric: A&O x's 3, appropriate affect, intact judgment & insight Results CBC & Chem 7: 02/05/21 06:00 02/05/21 06:00 Labs: Abnormal Lab Results - Last 24 Hours (Table) 02/04/21 02/04/21 02/04/21 Range/Units 07:41 07:41 12:05 WBC (3.8-10.6) k/uL RBC (3.80-5.40) m/uL Hgb (11.4-16.0) gm/dL Hct (34.0-46.0) % Plt Count (150-450) k/uL Neutrophils # (Manual) 22.60 H (1.3-7.7) k/uL Lymphocytes # (Manual) (1.0-4.8) k/uL Monocytes # (Manual) 1.05 H (0-1.0) k/uL Metamyelocytes # (Man) 0.26 H (0) k/uL Myelocytes # (Manual) 0.26 H (0) k/uL D-Dimer (<0.60) mg/L FEU Sodium (137-145) mmol/L Chloride (98-107) mmol/L Carbon Dioxide (22-30) mmol/L BUN (7-17) mg/dL Glucose (74-99) mg/dL POC Glucose (mg/dL) 264 H (75-99) mg/dL Calcium (8.4-10.2) mg/dL Total Protein (6.3-8.2) g/dL Albumin (3.5-5.0) g/dL Procalcitonin 0.26 H (0.02-0.09) ng/mL 02/04/21 02/04/21 02/04/21 Range/Units 12:41 16:56 20:13 WBC (3.8-10.6) k/uL RBC (3.80-5.40) m/uL Hgb (11.4-16.0) gm/dL Hct (34.0-46.0) % Plt Count (150-450) k/uL Neutrophils # (Manual) (1.3-7.7) k/uL Lymphocytes # (Manual) (1.0-4.8) k/uL Monocytes # (Manual) (0-1.0) k/uL Metamyelocytes # (Man) (0) k/uL Myelocytes # (Manual) (0) k/uL D-Dimer 2.09 H (<0.60) mg/L FEU Sodium (137-145) mmol/L Chloride (98-107) mmol/L Carbon Dioxide (22-30) mmol/L BUN (7-17) mg/dL Glucose (74-99) mg/dL POC Glucose (mg/dL) 308 H 254 H (75-99) mg/dL Calcium (8.4-10.2) mg/dL Total Protein (6.3-8.2) g/dL Albumin (3.5-5.0) g/dL Procalcitonin (0.02-0.09) ng/mL 02/05/21 02/05/21 02/05/21 Range/Units 06:00 06:00 06:00 WBC 22.3 H (3.8-10.6) k/uL RBC 3.61 L (3.80-5.40) m/uL Hgb 10.8 L (11.4-16.0) gm/dL Hct 31.2 L (34.0-46.0) % Plt Count 575 H (150-450) k/uL Neutrophils # (Manual) 19.40 H (1.3-7.7) k/uL Lymphocytes # (Manual) 0.89 L (1.0-4.8) k/uL Monocytes # (Manual) 1.12 H (0-1.0) k/uL Metamyelocytes # (Man) 0.45 H (0) k/uL Myelocytes # (Manual) 0.89 H (0) k/uL D-Dimer (<0.60) mg/L FEU Sodium 136 L (137-145) mmol/L Chloride 108 H (98-107) mmol/L Carbon Dioxide 21 L (22-30) mmol/L BUN 6 L (7-17) mg/dL Glucose 203 H (74-99) mg/dL POC Glucose (mg/dL) 224 H (75-99) mg/dL Calcium 7.3 L (8.4-10.2) mg/dL Total Protein 5.3 L (6.3-8.2) g/dL Albumin 2.4 L (3.5-5.0) g/dL Procalcitonin (0.02-0.09) ng/mL Microbiology - Last 24 Hours (Table) 01/31/21 14:45 Blood Culture - Preliminary Blood No Growth after 96 hours 02/01/21 14:56 Blood Culture - Preliminary Blood No Growth after 72 hours 02/02/21 10:00 Blood Culture - Preliminary Blood No Growth after 48 hours Assessment and Plan (1) Leukocytosis Status: Acute Code(s): D72.829 - ELEVATED WHITE BLOOD CELL COUNT, UNSPECIFIED SNOMED Code(s): 199922419 (2) Normocytic anemia Status: Acute Code(s): D64.9 - ANEMIA, UNSPECIFIED SNOMED Code(s): 564098440 Plan: WBC maybe a result of reactive inflammatory/infectious although with a immature cell presentation and normocytic anemia further work-up is wrranted. Full work-up pending, she will follow-up with Dr. fink in 4 weeks in office Physician Attest: I have completed the full history and physical and agree with above dictation, dictated as a scribe.
[2021-02-05 17:54] LABS: Protein, Total 4.6 g/dL (6.2-8.2)
[2021-02-05 17:59] LABS: Immunoglobulin M 38.3 mg/dL (40.0-280.0)
[2021-02-05 20:01] LABS: % Iron Saturation 17.75 (12.00-45.00); Iron 33 ug/dL (50-170); Total Iron Binding Capacity 188 ug/dL (228-460)
[2021-02-05 20:41] LABS: Rheumatoid Factor, Qnt <10 IU/mL (0-15)
[2021-02-06 15:20] LABS: Albumin 1.68 g/dL (3.80-4.90); Gamma Globulin 0.54 g/dL (0.70-1.50)
[2021-02-07 13:18] LABS: Free Kappa Lt Chain Qnt, Serum 4.21 mg/dL (0.33-1.94)
== END 2021-02-05 14:47 | disposition home or self-care (01) | DRG 871 ==
LOC: EC 17:03 → 3SCARD 23:55
PROVIDERS: ADMIT Internal Medicine; ATTEND Internal Medicine
DX: A41.9 Sepsis, unspecified organism (principal); E11.10 Type 2 diabetes mellitus with ketoacidosis without coma; J18.9 Pneumonia, unspecified organism; E11.00 Type 2 diabetes mellitus with hyperosmolarity without nonketotic hyperglycemic-hyperosmolar coma (NKHHC); E87.1 Hypo-osmolality and hyponatremia; N12 Tubulo-interstitial nephritis, not specified as acute or chronic; D64.9 Anemia, unspecified; E86.1 Hypovolemia; E87.6 Hypokalemia; Z20.822 Contact with and (suspected) exposure to COVID-19; Z79.899 Other long term (current) drug therapy; B96.20 Unspecified Escherichia coli [E. coli] as the cause of diseases classified elsewhere
CPT/HCPCS: 36415; 71046; 74176; 80048; 80051; 80053; 81001; 81025; 82009; 82565; 82607; 82728; 82746; 82784; 82947; 83010; 83036; 83540; 83550; 83605; 83615; 83735; 83880; 83883; 83921; 84100; 84145; 84165; 84450; 84460; 84484; 84520; 85025; 85027; 85045; 85379; 85652; 86038; 86140; 86334; 86431; 87040; 87077; 87086; 87186; 87502; 87635; 93005; 96374; 96375; 99285

== ENCOUNTER 2021-02-15 16:47 | Emergency (ER) | payer OTHER ==
[2021-02-15 20:28] VITALS: BP 131/79; PULSE 94; RESP 22; TEMP 98.2
--- NOTE | 2021-02-16 00:12 | ED ---
General Adult HPI - General Chief complaint: Recheck/Abnormal Lab/Rx Stated complaint: Inquicker/Med Refill Time Seen by Provider: 02/15/21 23:31 Source: patient Mode of arrival: ambulatory Limitations: no limitations - History of Present Illness Initial comments: 55-year-old female presents for medication refill. Patient states she ran out of her insulin quick pen. Patient states that she is trying to get into a primary care doctor and has an appointment for after the new year but ran out of her medication. She took her last dose tonight. States she needs a new pen for the morning. Patient has no other complaints at this time including shortness of breath, chest pain, abdominal pain, nausea or vomiting, headache, or visual changes. - Related Data Previous Rx's Medication Instructions Recorded Amoxicillin/Potassium Clav 1 tab PO BID 10 Days #20 tab 02/05/21 [Augmentin 875-125 Tablet] Omeprazole [PriLOSEC] 20 mg PO AC-BID 30 Days #60 cap 02/05/21 Ondansetron [Zofran] 4 mg PO Q8HR PRN #9 tab 02/05/21 lisinopriL [Zestril] 5 mg PO DAILY #30 tablet 02/05/21 metFORMIN HCL [Glucophage] 500 mg PO BID 30 Days #60 tab 02/05/21 Insulin Glargine,Hum.rec.anlog 30 unit SQ HS #10 each 02/16/21 [Basaglar Kwikpen U-100] Allergies Allergy/AdvReac Type Severity Reaction Status Date / Time No Known Allergies Allergy Verified 02/15/21 20:28 Review of Systems ROS Statement: Those systems with pertinent positive or pertinent negative responses have been documented in the HPI. ROS Other: All systems not noted in ROS Statement are negative. Past Medical History Past Medical History: Diabetes Mellitus History of Any Multi-Drug Resistant Organisms: None Reported Past Surgical History: No Surgical Hx Reported Past Anesthesia/Blood Transfusion Reactions: No Reported Reaction Past Psychological History: No Psychological Hx Reported Smoking Status: Never smoker Past Alcohol Use History: None Reported Past Drug Use History: None Reported - Past Family History Mother History Unknown: Yes Father History Unknown: Yes General Exam Limitations: no limitations General appearance: alert, in no apparent distress Head exam: Present: atraumatic Eye exam: Present: normal appearance, PERRL, EOMI. Absent: scleral icterus, conjunctival injection ENT exam: Present: normal exam, mucous membranes moist Neck exam: Present: normal inspection, full ROM. Absent: tenderness Respiratory exam: Present: normal lung sounds bilaterally. Absent: respiratory distress, wheezes Cardiovascular Exam: Present: regular rate, normal rhythm, normal heart sounds Course Vital Signs 02/15/21 20:23 Temperature 98.2 F Pulse Rate 94 Respiratory 22 Rate Blood Pressure 131/79 O2 Sat by Pulse 98 Oximetry Medical Decision Making - Medical Decision Making Vitals are stable. Patient is well-appearing. No physical complaints today. We will refill patient's quick pen 3. She will follow up with primary care at her scheduled appointment after the holiday. She will return here for any worsening symptoms. Disposition Clinical Impression: Encounter for medication refill Disposition: HOME SELF-CARE Condition: Good Instructions (If sedation given, give patient instructions): Diabetic Hyperglycemia (ED) Additional Instructions: Please follow up with primary care in 1-2 days. Return for any worsening symptoms. Prescriptions: Insulin Glargine,Hum.rec.anlog [David Zurita U-100] 30 unit SQ HS #10 each Is patient prescribed a controlled substance at d/c from ED?: No Referrals: Xavier Maynard MD [REFERRING] - 1-2 days Time of Disposition: 00:10
[2021-02-16 00:27] LABS: Glucose,Whole Blood 166 mg/dL (75-99)
== END 2021-02-16 00:35 | disposition home or self-care (01) ==
LOC: EC 16:47
DX: Z76.0 Encounter for issue of repeat prescription (principal); E11.9 Type 2 diabetes mellitus without complications
CPT/HCPCS: 36415; 99281

== ENCOUNTER → 2021-10-15 | Outpatient (CLI) | payer BC ==
--- NOTE | 2021-10-16 08:46 | MM ---
Reason for Exam: Screening (asymptomatic). Baseline mammogram. Patient History: Menarche at age 16. First Full-Term at age 21. Perimenopausal. Last menstrual period: Risk Values: Rosalva 5 year model risk: 1.0%. NCI Lifetime model risk: 6.6%. Prior Study Comparison: Patient's first Mammogram. Tissue Density: There are scattered fibroglandular densities. Findings: Analyzed By CAD. There is no suspicious group of microcalcifications or suspicious mass in either breast. Benign calcifications within the right breast. Overall Assessment: Benign, BI-RAD 2 Management: Screening Mammogram of both breasts in 1 year. A clinical breast exam by your physician is recommended on an annual basis and results should be correlated with mammographic findings. Electronically signed and approved by: Handy Negrete D.O.
--- NOTE | 2021-10-16 18:59 | BD ---
EXAMINATION TYPE: Axial Bone Density DATE OF EXAM: 10/15/2021 COMPARISON: NONE CLINICAL HISTORY: 56 years year old Female. ICD-10 CODE: Z13.820 SCREEN FOR OSTEOPOROSIS Height: 55 Weight: 163.1 FRAX RISK QUESTIONS: Alcohol (3 or more units per day): NO Family History (Parent hip fracture): NO Glucocorticoids (More than 3mos): NO History of Fracture in Adulthood: NO Secondary Osteoporosis: 1. Type 1 Diabetes: NO 2. Hyperthyroidism: NO 3. Menopause before 45: NO 4. Malnutrition: NO 5. Chronic liver disease: NO Rheumatoid Arthritis: NO Current Tobacco Use: NO RISK FACTORS HISTORY OF: Hip Fracture (Right/Left): NO Spine Fracture: NO History of Wrist Fracture: NO Surgery to Spine/Hip(right/left)/Wrist (right/left): NO Family History of Osteoporosis: NO Active: YES Diet low in dairy products/other sources of calcium: YES Postmenopausal woman: NO If Premenopausal, do you have irregular periods: YES Take estrogen and/or progesterone medications: NO Lost more than 2 inches in height since high school: NO Frequent falls: NO Poor Health: NO Hyperparathyroidism: NO Adrenal Insufficiency: NO MEDICATIONS: Prednisone or other steroids: NO Thyroid Medications: NO Osteoporosis Medications: NO Additional Medications: INSULIN, MULTI VIT., FOLIC ACID EXAM MEASUREMENTS: Bone mineral densitometry was performed using the [employer] System. Bone mineral density as measured about the Lumbar spine is: ----- L1-L4(G/cm2): 1.427 T Score Values are as follows: ----- L1: 1.0 ----- L2: 1.4 ----- L3: 2.4 ----- L4: 2.9 ----- L1-L4: 2.1 BASELINE STUDY Bone mineral density about the R hip (g/cm2): 1.088 Bone mineral density about the L hip (g/cm2): 1.034 T Score values are as follows: -----R Neck: 0.4 -----L Neck: 0.0 -----R Total: 0.5 -----L Total: 0.9 BASELINE STUDY FRAX%s: The graph provided illustrates a 4.9% chance for a major osteoporotic fx and a 0.1% chance fo r the hips probability for fx in 10 years time. IMPRESSION: Normal (Values between +1 and -1 indicate normal bone mass). Consider repeating this study in 5 year s or sooner if there is some new clinical indication. NOTE: T-SCORE=SD OF THE YOUNG ADULT MEAN.
== END | disposition home or self-care (01) ==
LOC: RADMAMWWP 16:01
PROVIDERS: ATTEND Internal Medicine
DX: Z12.31 Encounter for screening mammogram for malignant neoplasm of breast (principal); Z13.820 Encounter for screening for osteoporosis; Z78.0 Asymptomatic menopausal state
CPT/HCPCS: 77067; 77080

== ENCOUNTER → 2022-12-26 | Outpatient (CLI) | payer BC ==
--- NOTE | 2022-12-29 07:39 | MM ---
Reason for Exam: Screening (asymptomatic). Last mammogram was performed 1 year(s) and 2 month(s) ago. Patient History: Menarche at age 16. First Full-Term at age 21. Postmenopausal. Risk Values: Rosalva 5 year model risk: 1.0%. NCI Lifetime model risk: 6.5%. Prior Study Comparison: 10/15/2021 Bilateral MG screening mammo w CAD, [facility]. Tissue Density: The breast tissue is almost entirely fat. Findings: Analyzed By CAD. There is no suspicious group of microcalcifications or new suspicious mass. Benign-appearing calcifications right breast. Overall Assessment: Benign, BI-RAD 2 Management: Screening Mammogram of both breasts in [address] [facility] will attempt to contact patient to return for supplemental views and ultrasound if indicated. Patient should continue monthly self-breast exams. A clinical breast exam by your physician is recommended on an annual basis. This exam should not preclude additional follow-up of suspicious palpable abnormalities. Note on Rosalva scores and lifetime risk: 1. A Rosalva score greater than 3% is considered moderate risk. If this is the case, consider specialist referral to assess eligibility for a risk reducing agent. 2. If overall lifetime risk for the development of breast cancer is 20% or higher, the patient may qualify for future screening with alternating mammogram and breast MRI. Electronically signed and approved by: Kody Murray DO
== END | disposition home or self-care (01) ==
LOC: RADMAMWWP 16:01
PROVIDERS: ATTEND Internal Medicine
DX: Z12.31 Encounter for screening mammogram for malignant neoplasm of breast (principal); Z78.0 Asymptomatic menopausal state
CPT/HCPCS: 77067

== ENCOUNTER → 2024-04-25 | Outpatient (CLI) | payer BC ==
--- NOTE | 2024-04-25 14:09 | MM ---
Reason for Exam: Screening (asymptomatic). Last mammogram was performed 1 year(s) and 4 month(s) ago. Patient History: Menarche at age 16. First Full-Term at age 21. Postmenopausal. Risk Values: Rosalva 5 year model risk: 1.1%. NCI Lifetime model risk: 6.2%. Prior Study Comparison: 10/15/2021 Bilateral MG screening mammo w CAD, [facility]. 12/26/2022 Bilateral MG screening mammo w CAD, [facility]. Tissue Density: The breasts are almost entirely fatty. Findings: Analyzed By CAD. Right breast: There is no suspicious group of microcalcifications or new suspicious mass. Benign-appearing calcifications right breast. Left breast: There is no suspicious group of microcalcifications or new suspicious mass. Overall Assessment: Benign, BI-RAD 2 Management: Screening Mammogram of both breasts in [address] [facility] will attempt to contact patient to return for supplemental views and ultrasound if indicated. Patient should continue monthly self-breast exams. A clinical breast exam by your physician is recommended on an annual basis. This exam should not preclude additional follow-up of suspicious palpable abnormalities. Note on Rosalva scores and lifetime risk: 1. A Rosalva score greater than 3% is considered moderate risk. If this is the case, consider specialist referral to assess eligibility for a risk reducing agent. 2. If overall lifetime risk for the development of breast cancer is 20% or higher, the patient may qualify for future screening with alternating mammogram and breast MRI. [facility], , 04/25/2024 2:06 PM. Electronically signed and approved by: Kody Murray DO
== END | disposition home or self-care (01) ==
LOC: RADMAMWWP 12:11
PROVIDERS: ATTEND Internal Medicine
DX: Z12.31 Encounter for screening mammogram for malignant neoplasm of breast (principal); R92.313 Mammographic fatty tissue density, bilateral breasts; Z78.0 Asymptomatic menopausal state
CPT/HCPCS: 77063; 77067